=== PATIENT | female | born 1985 | race Caucasian/White ===

== ENCOUNTER 2016-02-21 19:52 | Inpatient (IN) | payer BC ==
[2016-02-21] MEDS ORDERED: ACETAMINOPHEN 325 MG TABLET PO ONE (20:50)
--- NOTE | 2016-02-21 20:54 | ER Document Report ---
ED Medical Screen (RME) - General Chief Complaint: Headache Stated Complaint: HEADACHE,BLURRED VISION,FEVER,COUGH Time seen by provider: 20:51 Mode of Arrival: Ambulatory Information source: Patient Notes: 30 yo female presents to ed for fever cough headache blurred vision left flank pain for 3 days.. Patient states she saw Dr Clark today and he started her on azithromycin today. TRAVEL OUTSIDE OF THE [place] IN LAST 30 DAYS: No - HPI Onset: Other - 3 days Onset/Duration: Gradual, Worse Quality of pain: Sharp Severity: Moderate Pain Level: 4 Associated Symptoms: Abdominal pain, Body/muscle aches, Cough (nonproductive), Dizzy/lightheaded, Fever, Headache, Other - left flank pian Exacerbated by: Denies Relieved by: Denies Similar symptoms previously: Yes Recently seen / treated by doctor: Yes - Related Data Smoking: Cigarettes, Less than 1 pack/day Frequency of alcohol use: None Drug Abuse: None Allergies/Adverse Reactions: No Known Allergies Allergy (Verified 03/30/15 13:15) Past Medical History - Social History Frequency of alcohol use: None Drug Abuse: None - Past Medical History Cardiac Medical History: Denies: Hx Coronary Artery Disease, Hx Heart Attack, Hx Hypertension Pulmonary Medical History: Denies: Hx Asthma, Hx Bronchitis, Hx COPD, Hx Pneumonia Neurological Medical History: Denies: Hx Cerebrovascular Accident, Hx Seizures Musculoskeltal Medical History: Denies Hx Arthritis Psychiatric Medical History: Reports: Hx Anxiety, Hx Depression - Immunizations Hx Diphtheria, Pertussis, Tetanus Vaccination: Yes Physical Exam - Vital signs Vitals: Temp Pulse Resp BP Pulse Ox 102.1 F H 89 20 105/61 96 02/21/16 20:02 02/21/16 20:02 02/21/16 20:02 02/21/16 20:02 02/21/16 20:02 Course - Vital Signs Vital signs: Temp Pulse Resp BP Pulse Ox 102.1 F H 89 20 105/61 96 02/21/16 20:02 02/21/16 20:02 02/21/16 20:02 02/21/16 20:02 02/21/16 20:02
[2016-02-21 21:23] LABS: APPEARANCE,URINE CLEAR; BILIRUBIN,URINE NEGATIVE (NEGATIVE); GLUCOSE, URINE NEGATIVE (NEGATIVE); KETONES,URINE NEGATIVE (NEGATIVE); LEUKOCYTE ESTERASE,URINE NEGATIVE (NEGATIVE); NITRITE,URINE NEGATIVE (NEGATIVE); PROTEIN,URINE NEGATIVE (NEGATIVE); URINE SPECIFIC GRAVITY 1.004; UROBILINOGEN,URINE NEGATIVE mg/dL (<2.0)
[2016-02-21 21:24] LABS: ABSOLUTE MONOCYTES (AUTO) 1.5 10^3/uL (0.1-1.4); ABSOLUTE NEUT (AUTO) 10.5 10^3/uL (1.7-8.2); BASOPHILS % (AUTO) 0.2 % (0-2); EOSINOPHILS % (AUTO) 0.1 % (0-6); HEMATOCRIT 40.7 % (36.0-47.0); HEMOGLOBIN 13.5 g/dL (12.0-15.5); HGB HCT DIFFERENCE -0.2; LYMPHOCYTES % (AUTO) 7.7 % (13-45); MEAN CORPUSCULAR HEMOGLOBIN 30.1 pg (27.0-33.4); MEAN CORPUSCULAR VOLUME 91 fl (80-97); MONOCYTES % (AUTO) 11.4 % (3-13); RED BLOOD COUNT 4.47 10^6/uL (3.72-5.28); SEGMENTED NEUTROPHILS % (AUTO) 80.6 % (42-78)
[2016-02-21 21:36] LABS: ALANINE AMINOTRANSFERASE 31 U/L (9-52); ALBUMIN 4.7 g/dL (3.5-5.0); ALKALINE PHOSPHATASE 60 U/L (38-126); ANION GAP 13 (5-19); ASPARTATE AMINO TRANSFERASE 22 U/L (14-36); BILIRUBIN,TOTAL 0.4 mg/dL (0.2-1.3); BLOOD UREA NITROGEN 4 mg/dL (7-20); CALCIUM 9.4 mg/dL (8.4-10.2); CARBON DIOXIDE 30 mmol/L (22-30); CHLORIDE 95 mmol/L (98-107); CREATININE RESULT 0.62 mg/dL (0.52-1.25); GLUCOSE 86 mg/dL (75-110); POTASSIUM 3.2 mmol/L (3.6-5.0); SODIUM 137.6 mmol/L (137-145); TOTAL PROTEIN 7.1 g/dL (6.3-8.2)
[2016-02-21] MEDS ORDERED: NORMAL SALINE 1000 ML 1,000 ML IV ONE (23:31)
[2016-02-21] MEDS ORDERED: ONDANSETRON HCL INJ/PF 4 MG/2 ML SDV IV ONE (23:31)
[2016-02-21] MEDS ORDERED: KETOROLAC TROMETHAMINE INJ/PF 30 MG/1 ML SDV IV ONE (23:31)
--- NOTE | 2016-02-21 23:32 | ER Document Report ---
ED Flu Like - General Mode of Arrival: Ambulatory Information source: Patient TRAVEL OUTSIDE OF THE [place] IN LAST 30 DAYS: No - HPI Onset: Other - x3 days Timing/Duration: Persistent Quality of pain: Achy Severity: None Associated symptoms: Other - see narrative <LORI GÓMEZ - Last Filed: 02/22/16 04:05> <KOURTNEYBERTO ANN - Last Filed: 02/22/16 05:39> - General Chief Complaint: Headache Stated Complaint: HEADACHE,BLURRED VISION,FEVER,COUGH Notes: Patient is a 30 year old female that presents to the emergency department today with complaints of fevers, cough, congestion, a headache, and generalized body aches for three days. Patient states that she was given azithromycin for a "bacterial infection" but she is not sure where the infection is located. Patient states that most of her family has been sick and she was the "last one to get it". Patient states that her children all have ear infections. Patient dates she has been having the above mentioned symptoms for three days. (LORI GÓMEZ) - Related Data Allergies/Adverse Reactions: No Known Allergies Allergy (Verified 02/22/16 05:04) Home Medications: Current Home Medications Fluoxetine HCl [Prozac 20 mg Capsule] 20 mg PO DAILY 02/22/16 [History] Oxycodone HCl/Acetaminophen [Percocet 5-325 mg Tablet] 1 - 2 tab PO ASDIR PRN [History] Past Medical History - General Information source: Patient - Social History Smoking Status: Current Every Day Smoker Cigarette use (# per day): Yes Frequency of alcohol use: None Drug Abuse: None Lives with: Family Family History: Reviewed & Not Pertinent Patient has suicidal ideation: No Patient has homicidal ideation: No Psychiatric Medical History: Reports: Hx Anxiety, Hx Depression Surgical Hx: Negative - Immunizations Hx Diphtheria, Pertussis, Tetanus Vaccination: Yes <LORI GÓMEZ - Last Filed: 02/22/16 04:05> Review of Systems - Review of Systems Constitutional: See HPI, Fever EENT: See HPI, Nose congestion Cardiovascular: No symptoms reported Respiratory: See HPI, Cough Gastrointestinal: No symptoms reported Genitourinary: No symptoms reported Female Genitourinary: No symptoms reported Musculoskeletal: No symptoms reported Skin: No symptoms reported Hematologic/Lymphatic: No symptoms reported Neurological/Psychological: See HPI, Headaches -: Yes All other systems reviewed and negative <LORI GÓMEZ - Last Filed: 02/22/16 04:05> Physical Exam - Vital signs Interpretation: Hypotensive, Febrile <LORI GÓMEZ - Last Filed: 02/22/16 04:05> <BERTO OCONNELL - Last Filed: 02/22/16 05:39> - Vital signs Vitals: Temp Pulse Resp BP Pulse Ox 102.1 F H 89 20 105/61 96 02/21/16 20:02 02/21/16 20:02 02/21/16 20:02 02/21/16 20:02 02/21/16 20:02 (LORI GÓMEZ) (BERTO OCONNELL) - Notes Notes: Physical Exam: General: Alert, ill-appearing, appears uncomfortable. Febrile. HEENT: Normocephalic. Atraumatic. PERRL. Extraocular movements intact. Oropharynx clear. Neck: No nuchal rigidity. Complains of neck pain with head movement. Respiratory: No respiratory distress. Clear and equal breath sounds bilaterally. Cardiovascular: Regular rate and rhythm. Abdominal: Normal Inspection. Non-tender. No distension. Normal Bowel Sounds. Back: Non-tender. No deformity or step off. Extremities: Moves all four extremities. Upper extremities: Normal inspection. Non-tender. Normal color. Normal ROM. Normal temperature. Lower extremities: Normal inspection. Non-tender. No edema. Normal color. Normal ROM. Normal temperature. Neurological: Normal cognition. AAOx4. Normal speech. Psychological: Normal affect. Normal Mood. Skin: Warm. Dry. Normal color. (LORI GÓMEZ) Course - Laboratory Result Diagrams: 02/21/16 21:00 02/21/16 21:00 <LORI GÓMEZ - Last Filed: 02/22/16 04:05> - Laboratory Result Diagrams: 02/21/16 21:00 02/21/16 21:00 - Diagnostic Test Radiology reviewed: Reports reviewed <BERTO OCONNELL - Last Filed: 02/22/16 05:39> - Re-evaluation Re-evalutation: 02/22/16 Patient is a 30-year-old female who comes in with fever, headache, neck pain, body wide pain. Labs with no acute findings. No flu. No strep. No UTI. Chest x-ray and CT negative. Attempted to perform lumbar puncture and got up to the point of anesthetizing the patient but she said that she was nauseated and could not tolerate the procedure. Patient did not want to proceed. Patient 's symptoms are very concerning for meningitis. Dexamethasone, cefepime and vancomycin have been started. Patient will be admitted to the hospital. Understands and agrees with this plan. Blood cultures have been sent. (BERTO OCONNELL) - Vital Signs Vital signs: Temp Pulse Resp BP Pulse Ox 98.6 F 89 14 90/60 L 95 02/22/16 05:32 02/21/16 20:02 02/22/16 05:31 02/22/16 05:31 02/22/16 05:31 (LORI GÓMEZ) (BERTO OCONNELL) - Laboratory Laboratory results interpreted by me: 02/21/16 02/21/16 02/21/16 21:00 21:00 21:00 WBC 13.0 H Seg Neutrophils % 80.6 H Lymphocytes % 7.7 L Absolute Neutrophils 10.5 H Absolute Monocytes 1.5 H Potassium 3.2 L Chloride 95 L BUN 4 L Lactic Acid 0.6 L Urine Blood 02/21/16 21:00 WBC Seg Neutrophils % Lymphocytes % Absolute Neutrophils Absolute Monocytes Potassium Chloride BUN Lactic Acid Urine Blood SMALL H (LORI GÓMEZ) (BERTO OCONNELL) Procedures - Lumbar Puncture Lumbar puncture Consent obtained: Yes Lumbar puncture pre-procedure: Sterile PPE donned, Betadine prep applied, Chloraprep applied, Sterile drapes applied Patient position: Sitting Anesthetic type: 1% Lidocaine Complications: Yes - patient did not tolerate, wanted to stop before spinal needle <BERTO OCONNELL - Last Filed: 02/22/16 05:39> Critical Care Note - Critical Care Note Total time excluding time spent on procedures (mins): 35 - evaluation and management of patient with fever and headache, multiple re-evaluations, coordination of admission, counseling of patient <BERTO OCONNELL - Last Filed: 02/22/16 05:39> Discharge <LORI GÓMEZ - Last Filed: 02/22/16 04:05> - Discharge Admitting Provider: Hospitalist - [facility] Admitted: Telemetry <BEROT OCONNELL - Last Filed: 02/22/16 05:39> - Discharge Clinical Impression: Meningitis Headache Qualifiers: Headache type: unspecified Headache chronicity pattern: acute headache Intractability: intractable Qualified Code(s): R51 - Headache Fever Qualifiers: Fever type: unspecified Qualified Code(s): R50.9 - Fever, unspecified Condition: Stable Disposition: ADMITTED INPATIENT Scribe Attestation: 02/22/16 05:39 I personally performed the services described in the documentation, reviewed and edited the documentation which was dictated to the scribe in my presence, and it accurately records my words and actions. (BERTO OCONNELL) Scribe Documentation - Scribe Written by Scribe:: Aleks Ibrahim, [id number] 02/22/2016 acting as scribe for :: Kourtney <LORI GÓMEZ - Last Filed: 02/22/16 04:05>
[2016-02-22] MEDS ORDERED: LIDOCAINE 1% INJ-PF (10 MG/ML) 30 ML SDV INJ ONE (01:05)
[2016-02-22] MEDS ORDERED: DIPHENHYDRAMINE HCL 50 MG/ML VIAL IV ONE (01:06)
[2016-02-22] MEDS ORDERED: PROCHLORPERAZINE EDISYLATE INJ 10 MG/2 ML VIAL IV ONE (01:06)
[2016-02-22] MEDS ORDERED: ONDANSETRON HCL INJ/PF 4 MG/2 ML SDV IV ONE (03:06)
[2016-02-22] MEDS ORDERED: DEXAMETHASONE SOD PHOS INJ 10 MG/1 ML VIAL IV ONE (03:07)
[2016-02-22] MEDS ORDERED: CEFTRIAXONE 2 GM/D5W RTU 50 ML IV ONE (03:11)
[2016-02-22] MEDS ORDERED: VANCOMYCIN HCL INJ 1000 MG VIAL IV ONE (03:11)
[2016-02-22] MEDS ORDERED: NORMAL SALINE 1000 ML 1,000 ML IV ONE (04:04)
[2016-02-22] MEDS ORDERED: ACETAMINOPHEN 325 MG TABLET PO PRN (04:20)
[2016-02-22] MEDS ORDERED: ONDANSETRON HCL INJ/PF 4 MG/2 ML SDV IV PRN (04:20)
[2016-02-22] MEDS ORDERED: KETOROLAC TROMETHAMINE INJ/PF 30 MG/1 ML SDV IV PRN (04:22)
[2016-02-22] MEDS ORDERED: VANCOMYCIN HCL 0 MG in DEXTROSE 5%-WATER 250 ML IV NR (04:30)
[2016-02-22] MEDS ORDERED: ACYCLOVIR SODIUM INJ/PF 500 MG/10 ML SDV IV PRN (05:12)
[2016-02-22] MEDS: POTASSI CL 20 MEQ/50 ML RIDER 50 ML IV SCH ×2 (05:21→07:58)
[2016-02-22] MEDS: NORMAL SALINE 1000 ML 1,000 ML IV SCH ×2 (05:21→07:58)
[2016-02-22] MEDS ORDERED: ACYCLOVIR SODIUM 750 MG in NORMAL SALINE 250 ML IV SCH (06:00)
--- NOTE | 2016-02-22 06:58 | PDOC H&P ---
History of Present Illness Admission Date/PCP: 02/22/16 04:20 KYUNG BETTENCOURT MD Patient complains of: Fever headache photophobia History of Present Illness: PADDY CONTEH is a 30 year old female with a past medical history ofDepression Patient denies homicidal or suicidal ideation. I Will evaluate education reconciliation, TSH and obtain urine drug screen, consider SSRI and or mental health consultation. 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 She denies sore throat, rhinorrhea, seizure or dizziness or ear pain. She admits exposure to daughter with viral syndrome. In the emergency room she's found to have a fever of 102 and leukocytosis but refuses LP. She started on empiric antibiotics and referred to the hospitalist for meningitis. Past Medical History Cardiac Medical History: Denies: Coronary Artery Disease, Myocardial Infarction, Hypertension Pulmonary Medical History: Denies: Asthma, Bronchitis, Chronic Obstructive Pulmonary Disease (COPD), Pneumonia Neurological Medical History: Denies: Seizures GI Medical History: Reports: Other - Irritable bowel syndrome diarrhea predominant Musculoskeltal Medical History: Denies: Arthritis Psychiatric Medical History: Reports: Depression, Tobacco Dependency, Other - Chronic pain of pelvic congestion syndrome Hematology: Denies: Anemia Social History Information Source: Patient Lives with: Family Smoking Status: Current Every Day Smoker Cigarettes Packs Per Day: 1 Number of Years Smokin Frequency of Alcohol Use: None Hx Recreational Drug Use: No Hx Prescription Drug Abuse: No - Advance Directive Resuscitation Status: Full Code Family History Family History: DM Parental Family History Reviewed: Yes Children Family History Reviewed: Yes Sibling(s) Family History Reviewed.: Yes Medication/Allergy Home Medications: Fluoxetine HCl [Prozac 20 mg Capsule] 20 mg PO DAILY 02/22/16 Oxycodone HCl/Acetaminophen [Percocet 5-325 mg Tablet] 1 - 2 tab PO ASDIR PRN Allergies/Adverse Reactions: No Known Allergies Allergy (Verified 02/22/16 05:04) Review of Systems Constitutional: ABSENT: chills, fever(s), headache(s), weight gain, weight loss Eyes: ABSENT: visual disturbances Ears: ABSENT: hearing changes Cardiovascular: ABSENT: chest pain, dyspnea on exertion, edema, orthropnea, palpitations Respiratory: ABSENT: cough, hemoptysis Gastrointestinal: ABSENT: abdominal pain, constipation, diarrhea, hematemesis, hematochezia, nausea, vomiting Genitourinary: ABSENT: dysuria, hematuria Musculoskeletal: ABSENT: joint swelling Integumentary: ABSENT: rash, wounds Neurological: ABSENT: abnormal gait, abnormal speech, confusion, dizziness, focal weakness, syncope Psychiatric: ABSENT: anxiety, depression, homidical ideation, suicidal ideation Endocrine: ABSENT: cold intolerance, heat intolerance, polydipsia, polyuria Hematologic/Lymphatic: ABSENT: easy bleeding, easy bruising Physical Exam Vital Signs: Temp Pulse Resp BP Pulse Ox 98.9 F 55 L 16 90/46 L 97 02/22/16 06:06 02/22/16 06:06 02/22/16 06:06 02/22/16 06:06 02/22/16 06:06 Intake & Output 02/20/16 02/21/16 02/22/16 11:59 11:59 11:59 Weight 48.9 kg General appearance: PRESENT: no acute distress, well-developed, well-nourished Head exam: PRESENT: atraumatic, normocephalic Eye exam: PRESENT: conjunctiva pink, EOMI, PERRLA. ABSENT: scleral icterus Ear exam: PRESENT: normal external ear exam Mouth exam: PRESENT: moist, tongue midline Throat exam: ABSENT: post pharyngeal erythema, tonsillar erythema, tonsillar exudate, tonsillogmegaly Neck exam: PRESENT: full ROM, meningismus. ABSENT: carotid bruit, JVD, lymphadenopathy, thyromegaly Respiratory exam: PRESENT: clear to auscultation ihsan. ABSENT: rales, rhonchi, wheezes Cardiovascular exam: PRESENT: RRR. ABSENT: diastolic murmur, rubs, systolic murmur Pulses: PRESENT: normal dorsalis pedis pul Vascular exam: PRESENT: normal capillary refill GI/Abdominal exam: PRESENT: normal bowel sounds, soft. ABSENT: distended, guarding, mass, organolmegaly, rebound, tenderness Rectal exam: PRESENT: deferred Extremities exam: PRESENT: full ROM. ABSENT: calf tenderness, clubbing, pedal edema Neurological exam: PRESENT: alert, awake, oriented to person, oriented to place , oriented to time, oriented to situation, CN II-XII grossly intact. ABSENT: motor sensory deficit Psychiatric exam: PRESENT: appropriate affect, normal mood. ABSENT: homicidal ideation, suicidal ideation Skin exam: PRESENT: dry, intact, warm. ABSENT: cyanosis, rash Results Impressions: Chest X-Ray 02/21/16 20:50 IMPRESSION: REACTIVE AIRWAY DISEASE VERSUS VIRAL SYNDROME. NO CONSOLIDATION. Head CT 02/22/16 01:32 IMPRESSION: NORMAL BRAIN CT WITHOUT CONTRAST. Assessment & Plan - Diagnosis (1) Meningitis Is this a current diagnosis for this admission?: YesPlan: Symptoms suggestive of aseptic meningitis she started on Rocephin vancomycin and acyclovir continue symptomatic management. Patient refusing LP continue to monitor biophysical and biochemical response (2) Depression Is this a current diagnosis for this admission?: YesPlan: Patient has flat affect unclear if underlying depression versus acute illness continue outpatient SSRI (3) Chronic pain Is this a current diagnosis for this admission?: YesPlan: Unclear indication for narcotics given history of pelvic congestion syndrome will hold narcotics (4) Tobacco dependence Is this a current diagnosis for this admission?: YesPlan: Tobacco Dependence patient received tobacco cessation counseling and offered nicotine replacement options (5) Fever Qualifiers: Fever type: unspecified Qualified Code(s): R50.9 - Fever, unspecified Is this a current diagnosis for this admission?: YesPlan: Please see #1 (6) Headache Qualifiers: Headache type: unspecified Headache chronicity pattern: acute headache Intractability: intractable Qualified Code(s): R51 - Headache Is this a current diagnosis for this admission?: YesPlan: Please see #1 - Time Time Spent: 30 to 50 Minutes
[2016-02-22] MEDS: DEXAMETHASONE 4 MG TABLET PO SCH ×3 (07:15→21:52)
[2016-02-22] MEDS: HEPARIN SOD (PORCINE) 5,000 UNIT/ML 1 ML SYRINGE SUBCUT SCH ×3 (07:15→21:52)
[2016-02-22 08:11] LABS: URINE BARBITURATES SCREEN NEGATIVE; URINE METHADONE SCREEN NEGATIVE; URINE PHENCYCLIDINE SCREEN NEGATIVE
[2016-02-22] MEDS ORDERED: CEFTRIAXONE 1 GM/D5W RTU 50 ML IV SCH (10:00)
[2016-02-22] MEDS ORDERED: FLUOXETINE HCL 20 MG CAPSULE PO SCH (10:00)
[2016-02-22] MEDS: DOCUSATE SODIUM 100 MG CAPSULE PO SCH ×2 (10:13→17:50)
[2016-02-22] MEDS ORDERED: POTASSIUM CHLORIDE 10 MEQ TABLET.SA PO ONE (10:45)
[2016-02-22] MEDS ORDERED: FLUOXETINE HCL 20 MG CAPSULE PO ONE ×2 (11:00)
[2016-02-22] MEDS: OXYCODONE-ACETAMINOPHEN 5-325 MG TABLET PO PRN (12:10)
[2016-02-22] MEDS: ACYCLOVIR SODIUM 750 MG in NORMAL SALINE 250 ML IV SCH ×2 (12:10→17:51)
[2016-02-22] MEDS: VANCOMYCIN HCL 500 MG in DEXTROSE 5%-WATER 100 ML IV SCH ×2 (15:08→22:05)
[2016-02-23] MEDS: ACYCLOVIR SODIUM 750 MG in NORMAL SALINE 250 ML IV SCH (03:22)
[2016-02-23] MEDS: OXYCODONE-ACETAMINOPHEN 5-325 MG TABLET PO PRN (05:09)
[2016-02-23] MEDS: HEPARIN SOD (PORCINE) 5,000 UNIT/ML 1 ML SYRINGE SUBCUT SCH (06:08)
[2016-02-23] MEDS: DEXAMETHASONE 4 MG TABLET PO SCH (06:08)
[2016-02-23 06:39] LABS: ABSOLUTE LYMPHOCYTES (AUTO) 0.9 10^3/uL (0.5-4.7); ABSOLUTE NEUT (AUTO) 12.4 10^3/uL (1.7-8.2); BASOPHILS % (AUTO) 0.1 % (0-2); HEMATOCRIT 36.3 % (36.0-47.0); HEMOGLOBIN 11.9 g/dL (12.0-15.5); HGB HCT DIFFERENCE -0.6; LYMPHOCYTES % (AUTO) 6.2 % (13-45); MEAN CORPUSCULAR HGB CONC 32.8 g/dL (32.0-36.0); MEAN CORPUSCULAR VOLUME 92 fl (80-97); MONOCYTES % (AUTO) 6.9 % (3-13); RED BLOOD COUNT 3.97 10^6/uL (3.72-5.28); SEGMENTED NEUTROPHILS % (AUTO) 86.8 % (42-78); WHITE BLOOD COUNT 14.3 10^3/uL (4.0-10.5)
[2016-02-23] MEDS: VANCOMYCIN HCL 500 MG in DEXTROSE 5%-WATER 100 ML IV SCH (06:51)
[2016-02-23 06:56] LABS: ANION GAP 11 (5-19); BLOOD UREA NITROGEN 4 mg/dL (7-20); CALCIUM 8.4 mg/dL (8.4-10.2); CARBON DIOXIDE 22 mmol/L (22-30); CHLORIDE 110 mmol/L (98-107); CREATININE RESULT 0.45 mg/dL (0.52-1.25); GLUCOSE 100 mg/dL (75-110); POTASSIUM 3.7 mmol/L (3.6-5.0); SODIUM 143.4 mmol/L (137-145)
[2016-02-23 08:32] VITALS: BP 100/56
[2016-02-23] MEDS ORDERED: OSELTAMIVIR PHOSPHATE 75 MG CAPSULE PO SCH (10:00)
[2016-02-23] MEDS ORDERED: FLUOXETINE HCL 20 MG CAPSULE PO SCH ×2 (10:00)
--- NOTE | 2016-02-23 11:27 | PDOC DISCHARGE SUMMARY ---
General - Admit/Disc Date/PCP Admission Date/Primary Care Provider: 02/22/16 04:20 KYUNG BETTENCOURT MD Discharge Date: 02/23/16 - Discharge Diagnosis (1) Influenza B Is this a current diagnosis for this admission?: YesSummary: Started on Tamiflu, ibuprofen and prn zofran. She was instructed to use Mucinex or Robitussin for cough over the counter (2) Chronic pain Is this a current diagnosis for this admission?: YesSummary: Continue home pain medication (3) Depression Is this a current diagnosis for this admission?: YesSummary: continue SSRI (4) Tobacco dependence Is this a current diagnosis for this admission?: YesSummary: Counseled (5) Headache Is this a current diagnosis for this admission?: YesSummary: Ibuprofen prn - Additional Information Resuscitation Status: Full Code Discharge Activity: Activity As Tolerated, Balance Activity w/Rest Home Medications: Fluoxetine HCl [Prozac 20 mg Capsule] 20 mg PO DAILY 02/22/16 Oxycodone HCl/Acetaminophen [Percocet 5-325 mg Tablet] 1 tab PO Q8 02/22/16 Acetaminophen [Tylenol 325 mg Tablet] 650 mg PO Q4HP PRN tablet 02/23/16 Ibuprofen 800 mg PO Q8HP PRN #30 tablet 02/23/16 Ondansetron HCl [Zofran 4 mg Tablet] 1 - 2 tab PO Q4H PRN #10 tablet 02/23/16 Oseltamivir Phosphate [Tamiflu 75 mg Capsule] 75 mg PO BID #9 capsule 02/23/16 History of Present Illness Patient complains of: Headache, body aches, fever and cough History of Present Illness: PADDY CONTEH is a 30 year old female who presented to [facility] ED's on 02/20/2015 with fever, cough and headache. She had a rapid flu in the ED that was read as negative. She has mild leucocytosis. She refused lumbar puncture by ED MD. She was empirically started on IV Ceftriazone, Vancomycin and Acyclovir for possible meningitis and referred to the hospitalist for admission. Hospital Course Hospital Course: Patient was admitted to the telemetry unit. Fever improved, she continued to complain about headache, body ache and cough. We repeated her influenza test using a nasal swab and found the patient to be positive for influenza B. Antibiotics were stopped. The patient was given one dose of tamiflu and discharged home. Physical Exam Vital Signs: Temp Pulse Resp BP Pulse Ox 98.0 F 49 L 16 95/51 L 100 02/23/16 08:29 02/23/16 08:29 02/23/16 08:29 02/23/16 08:29 02/23/16 08:29 Intake & Output 02/22/16 02/23/16 02/24/16 06:59 06:59 06:59 Intake Total 780 Balance 780 Weight 48.9 kg 48.9 kg General appearance: PRESENT: no acute distress, thin, well-developed Head exam: PRESENT: atraumatic, normocephalic Eye exam: PRESENT: conjunctiva pink, EOMI, PERRLA. ABSENT: scleral icterus Ear exam: PRESENT: normal external ear exam Mouth exam: PRESENT: moist, tongue midline Neck exam: ABSENT: carotid bruit, JVD, lymphadenopathy, thyromegaly Respiratory exam: PRESENT: clear to auscultation ihsan. ABSENT: rales, rhonchi, wheezes Cardiovascular exam: PRESENT: RRR. ABSENT: diastolic murmur, rubs, systolic murmur Pulses: ABSENT: normal carotid pulses, normal radial pulses, normal femoral pulses, normal dorsalis pedis pul, +1 pedal pulses bilateral, +2 pedal pulses bilateral, other Vascular exam: PRESENT: normal capillary refill GI/Abdominal exam: PRESENT: normal bowel sounds, soft. ABSENT: distended, guarding, mass, organolmegaly, rebound, tenderness Rectal exam: PRESENT: deferred Extremities exam: PRESENT: full ROM. ABSENT: calf tenderness, clubbing, pedal edema Neurological exam: PRESENT: alert, awake, oriented to person, oriented to place , oriented to time, oriented to situation, CN II-XII grossly intact. ABSENT: motor sensory deficit Psychiatric exam: PRESENT: appropriate affect, normal mood. ABSENT: homicidal ideation, suicidal ideation Skin exam: PRESENT: dry, intact, warm. ABSENT: cyanosis, rash Results Laboratory Results: 02/23/16 05:38 02/23/16 05:38 02/23/16 02/23/16 05:38 05:38 WBC 14.3 H RBC 3.97 Hgb 11.9 L Hct 36.3 MCV 92 MCH 30.0 MCHC 32.8 RDW 14.0 Plt Count 181 Seg Neutrophils % 86.8 H Lymphocytes % 6.2 L Monocytes % 6.9 Eosinophils % 0.0 Basophils % 0.1 Absolute Neutrophils 12.4 H Absolute Lymphocytes 0.9 Absolute Monocytes 1.0 Absolute Eosinophils 0.0 Absolute Basophils 0.0 Sodium 143.4 Potassium 3.7 Chloride 110 H Carbon Dioxide 22 Anion Gap 11 BUN 4 L Creatinine 0.45 L Est GFR ( Amer) > 60 Est GFR (Non-Af Amer) > 60 Glucose 100 Calcium 8.4 Impressions: Chest X-Ray 02/21/16 20:50 IMPRESSION: REACTIVE AIRWAY DISEASE VERSUS VIRAL SYNDROME. NO CONSOLIDATION. Head CT 02/22/16 01:32 IMPRESSION: NORMAL BRAIN CT WITHOUT CONTRAST. Qualifiers PATEINT BEING DISCHARGED WITH ANY OF THE FOLLOWING DIAGNOSIS?: No Plan Discharge Plan: Home with family. Prescriptions for Tamiflu. Zofran, and Zofran Time Spent: Less than 30 Minutes
== END 2016-02-23 09:33 | disposition home or self-care (01) | DRG 153 ==
LOC: ER 19:52 → EH 02-22 04:20 → UNDOADMIN 02-22 04:42 → EH 02-22 04:42 → 5 02-22 06:01
PROVIDERS: ADMIT Internal Medicine; ATTEND Internal Medicine
DX: J11.1 Influenza due to unidentified influenza virus with other respiratory manifestations (principal); G89.29 Other chronic pain; F17.210 Nicotine dependence, cigarettes, uncomplicated; F32.9 Major depressive disorder, single episode, unspecified; Z83.3 Family history of diabetes mellitus; R51 Headache; Z79.891 Long term (current) use of opiate analgesic
CPT/HCPCS: 36415; 70450; 71020; 80048; 80053; 80307; 81001; 83605; 83735; 84443; 84703; 85025; 87040; 87070; 87086; 87804; 87880; 96361; 96374; 96375; 96376; 99291; J0133; J0696; J0780; J1100; J1200; J1644; J1885; J2405; J3370; J3480; J3490; J7030; J7050

== ENCOUNTER → 2016-03-12 | Outpatient (CLI) | payer BC ==
[2016-03-12 14:10] LABS: HEMATOCRIT 42.3 % (36.0-47.0); HEMOGLOBIN 13.7 g/dL (12.0-15.5); HGB HCT DIFFERENCE -1.2; MEAN CORPUSCULAR HEMOGLOBIN 29.4 pg (27.0-33.4); MEAN CORPUSCULAR HGB CONC 32.3 g/dL (32.0-36.0); MEAN CORPUSCULAR VOLUME 91 fl (80-97); RED BLOOD COUNT 4.65 10^6/uL (3.72-5.28); RED CELL DISTRIBUTION WIDTH 13.6 % (11.5-14.0); WHITE BLOOD COUNT 9.1 10^3/uL (4.0-10.5)
[2016-03-12 14:23] LABS: ALANINE AMINOTRANSFERASE 29 U/L (9-52); ALKALINE PHOSPHATASE 79 U/L (38-126); ANION GAP 13 (5-19); ASPARTATE AMINO TRANSFERASE 16 U/L (14-36); BILIRUBIN,TOTAL 0.4 mg/dL (0.2-1.3); BLOOD UREA NITROGEN 2 mg/dL (7-20); CALCIUM 9.3 mg/dL (8.4-10.2); CARBON DIOXIDE 26 mmol/L (22-30); CHLORIDE 105 mmol/L (98-107); CREATININE RESULT 0.56 mg/dL (0.52-1.25); GLUCOSE 110 mg/dL (75-110); POTASSIUM 3.5 mmol/L (3.6-5.0); SODIUM 143.7 mmol/L (137-145); TOTAL PROTEIN 6.5 g/dL (6.3-8.2)
== END ==
LOC: OD 13:46
PROVIDERS: ATTEND Obstetrics & Gynecology
DX: R10.9 Unspecified abdominal pain (principal); R19.7 Diarrhea, unspecified
CPT/HCPCS: 36415; 80053; 85027

== ENCOUNTER 2016-03-14 07:26 | Emergency (ER) | payer BC ==
[2016-03-14] MEDS ORDERED: NORMAL SALINE 1000 ML 1,000 ML IV ONE (07:52)
[2016-03-14] MEDS ORDERED: ONDANSETRON HCL INJ/PF 4 MG/2 ML SDV IV ONE (07:52)
--- NOTE | 2016-03-14 07:55 | ER Document Report ---
ED GI/ - General Chief Complaint: Diarrhea Stated Complaint: POSSIBLE MEDICATION WITHDRAWL Mode of Arrival: Ambulatory Information source: Patient Notes: Patient presents reporting insomnia, nausea and diarrhea. Patient suspects that she is likely withdrawing from opioids. Patient states she has taken 10 mg of oxycodone every 6 hours for the past 2 years. Patient has not had any oxycodone since 5 PM yesterday. Patient states she does want to come off of her medications, but is not able to handle the side effects. Patient does complain of abdominal cramping. Patient denies any urinary symptoms or fever. TRAVEL OUTSIDE OF THE [place] IN LAST 30 DAYS: No - HPI Patient complains to provider of: Abdominal pain, Diarrhea. No: Vomiting Onset: Yesterday Timing/Duration: Waxing and waning Quality of pain: Cramping Severity at maximum: Severe Pain Level: 0 Vaginal bleeding (Compared to normal period): None Associated symptoms: Diarrhea, Nausea. denies: Blood in stool, Dysuria, Fever, Urinary hesitancy, Urinary frequency, Urinary retention, Urinary urgency, Vaginal discharge, Vomiting Exacerbated by: Denies Relieved by: Denies Similar symptoms previously: Yes Recently seen / treated by doctor: No - Related Data Allergies/Adverse Reactions: No Known Allergies Allergy (Verified 03/14/16 07:29) Past Medical History - General Information source: Patient Last Menstrual Period: 02/26/2016 - Social History Smoking Status: Current Every Day Smoker Chew tobacco use (# tins/day): No Frequency of alcohol use: None Drug Abuse: None Occupation: none Family History: DM Patient has suicidal ideation: No Patient has homicidal ideation: No - Past Medical History Cardiac Medical History: Denies: Hx Coronary Artery Disease, Hx Heart Attack, Hx Hypertension Pulmonary Medical History: Denies: Hx Asthma, Hx Bronchitis, Hx COPD, Hx Pneumonia Neurological Medical History: Denies: Hx Cerebrovascular Accident, Hx Seizures Renal/ Medical History: Denies: Hx Peritoneal Dialysis Musculoskeltal Medical History: Denies Hx Arthritis Psychiatric Medical History: Reports: Hx Anxiety, Hx Depression Past Surgical History: Reports: Hx Gynecologic Surgery - Immunizations Hx Diphtheria, Pertussis, Tetanus Vaccination: Yes Review of Systems - Review of Systems Constitutional: No symptoms reported. denies: Fever EENT: No symptoms reported Cardiovascular: No symptoms reported. denies: Chest pain Respiratory: No symptoms reported. denies: Cough, Short of breath Gastrointestinal: Abdominal pain, Diarrhea, Nausea, Poor fluid intake. denies: Vomiting Genitourinary: No symptoms reported. denies: Dysuria, Flank pain Female Genitourinary: No symptoms reported Musculoskeletal: No symptoms reported Skin: No symptoms reported Hematologic/Lymphatic: No symptoms reported Neurological/Psychological: No symptoms reported Physical Exam - Vital signs Vitals: Temp Pulse Resp BP Pulse Ox 97.3 F 86 16 126/88 H 100 03/14/16 07:30 03/14/16 07:30 03/14/16 07:30 03/14/16 07:30 03/14/16 07:30 - General General appearance: Appears well, Alert In distress: None - HEENT Head: Normocephalic, Atraumatic Eyes: Normal Nasal: Normal Mouth/Lips: Normal Mucous membranes: Normal Neck: Normal - Respiratory Respiratory status: No respiratory distress Chest status: Nontender Breath sounds: Normal. No: Rales, Rhonchi, Stridor, Wheezing Chest palpation: Normal - Cardiovascular Rhythm: Regular Heart sounds: S1 appreciated, S2 appreciated Murmur: No - Abdominal Inspection: Normal Distension: No distension Bowel sounds: Normal Tenderness: Nontender Organomegaly: No organomegaly - Back Back: Normal, Nontender. No: CVA tenderness - Extremities General upper extremity: Normal inspection, Normal strength General lower extremity: Normal inspection, Normal strength - Neurological Neuro grossly intact: Yes Cognition: Normal Neal Coma Scale Eye Opening: Spontaneous [place] Coma Scale Verbal: Oriented [place] Coma Scale Motor: Obeys Commands [place] Coma Scale Total: 15 - Psychological Associated symptoms: Tearful - Skin Skin Temperature: Warm Skin Moisture: Dry Skin Color: Normal Course - Re-evaluation Re-evalutation: 03/14/16 08:[address] Lynn regarding patient presentation and diagnostic evaluation. 03/14/16 Patient tolerating oral fluids without vomiting 03/14/16 Patient given outpatient referral information for detox. Patient states she plans to go [facility] [place] directly after discharge - Vital Signs Vital signs: Temp Pulse Resp BP Pulse Ox 97.3 F 84 16 124/76 99 03/14/16 07:30 03/14/16 10:34 03/14/16 10:34 03/14/16 10:34 03/14/16 10:34 - Laboratory Result Diagrams: 03/14/16 08:05 03/14/16 08:05 Laboratory results interpreted by me: 03/14/16 03/14/16 08:05 09:15 Potassium 3.4 L BUN 5 L Glucose 115 H Urine Protein 30 H Labs- Entire Visit 03/14/16 03/14/16 03/14/16 08:05 08:05 08:05 WBC 8.8 RBC 4.87 Hgb 14.4 Hct 44.7 MCV 92 MCH 29.6 MCHC 32.3 RDW 13.9 Plt Count 356 Seg Neutrophils % 76.1 Lymphocytes % 16.2 Monocytes % 6.3 Eosinophils % 0.9 Basophils % 0.5 Absolute Neutrophils 6.7 Absolute Lymphocytes 1.4 Absolute Monocytes 0.6 Absolute Eosinophils 0.1 Absolute Basophils 0.0 Sodium 143.8 Potassium 3.4 L Chloride 104 Carbon Dioxide 27 Anion Gap 13 BUN 5 L Creatinine 0.59 Est GFR ( Amer) > 60 Est GFR (Non-Af Amer) > 60 Glucose 115 H Calcium 9.4 Total Bilirubin 0.6 Direct Bilirubin 0.0 AST 19 ALT 27 Alkaline Phosphatase 77 Total Protein 6.8 Albumin 4.2 Lipase 159.8 Serum HCG, Qual NEGATIVE Urine Color Urine Appearance Urine pH Ur Specific [place] Urine Protein Urine Glucose (UA) Urine Ketones Urine Blood Urine Nitrite Urine Bilirubin Urine Urobilinogen Ur Leukocyte Esterase Urine WBC (Auto) Squamous Epi Cells Auto Urine Mucus (Auto) Urine Ascorbic Acid 03/14/16 09:15 WBC RBC Hgb Hct MCV MCH MCHC RDW Plt Count Seg Neutrophils % Lymphocytes % Monocytes % Eosinophils % Basophils % Absolute Neutrophils Absolute Lymphocytes Absolute Monocytes Absolute Eosinophils Absolute Basophils Sodium Potassium Chloride Carbon Dioxide Anion Gap BUN Creatinine Est GFR ( Amer) Est GFR (Non-Af Amer) Glucose Calcium Total Bilirubin Direct Bilirubin AST ALT Alkaline Phosphatase Total Protein Albumin Lipase Serum HCG, Qual Urine Color YELLOW Urine Appearance SLIGHTLY-CLOUDY Urine pH 5.0 Ur Specific [place] 1.028 Urine Protein 30 H Urine Glucose (UA) NEGATIVE Urine Ketones NEGATIVE Urine Blood NEGATIVE Urine Nitrite NEGATIVE Urine Bilirubin NEGATIVE Urine Urobilinogen NEGATIVE Ur Leukocyte Esterase NEGATIVE Urine WBC (Auto) 1 Squamous Epi Cells Auto 2 Urine Mucus (Auto) MOD Urine Ascorbic Acid NEGATIVE Discharge - Discharge Clinical Impression: Opiate withdrawal, Nausea, Hypokalemia Diarrhea Qualifiers: Diarrhea type: unspecified type Qualified Code(s): R19.7 - Diarrhea, unspecified Condition: Stable Disposition: HOME, SELF-CARE Instructions: Diarrhea, Nonspecific ([facility]), Nausea or Vomiting, Nonspecific ([facility] ), Antinausea Medication ([facility]), Hypokalemia ([facility]) Additional Instructions: Return immediately for any new or worsening symptoms Followup with your primary care provider, call tomorrow to make a followup appointment. Your primary doctor can recheck your potassium level as it was a little low today. Follow up with an outpatient detox facility, review list that you were given at discharge Prescriptions: Ondansetron HCl [Zofran 4 mg Tablet] 1 - 2 tab PO Q6 PRN #15 tablet PRN Reason: Referrals: KYUNG BETTENCOURT MD [Primary Care Provider] - Follow up as needed [facility] [Provider Group] - Follow up as needed [facility] [Provider Group] - Follow up as needed
[2016-03-14 08:25] LABS: ABSOLUTE EOSINOPHILS # (AUTO) 0.1 10^3/uL (0.0-0.6); ABSOLUTE LYMPHOCYTES (AUTO) 1.4 10^3/uL (0.5-4.7); ABSOLUTE MONOCYTES (AUTO) 0.6 10^3/uL (0.1-1.4); ABSOLUTE NEUT (AUTO) 6.7 10^3/uL (1.7-8.2); BASOPHILS % (AUTO) 0.5 % (0-2); EOSINOPHILS % (AUTO) 0.9 % (0-6); HEMATOCRIT 44.7 % (36.0-47.0); HEMOGLOBIN 14.4 g/dL (12.0-15.5); HGB HCT DIFFERENCE -1.5; LYMPHOCYTES % (AUTO) 16.2 % (13-45); MEAN CORPUSCULAR HEMOGLOBIN 29.6 pg (27.0-33.4); MEAN CORPUSCULAR HGB CONC 32.3 g/dL (32.0-36.0); MEAN CORPUSCULAR VOLUME 92 fl (80-97); MONOCYTES % (AUTO) 6.3 % (3-13); RED BLOOD COUNT 4.87 10^6/uL (3.72-5.28); RED CELL DISTRIBUTION WIDTH 13.9 % (11.5-14.0); SEGMENTED NEUTROPHILS % (AUTO) 76.1 % (42-78); WHITE BLOOD COUNT 8.8 10^3/uL (4.0-10.5)
[2016-03-14 08:46] LABS: ALANINE AMINOTRANSFERASE 27 U/L (9-52); ALBUMIN 4.2 g/dL (3.5-5.0); ALKALINE PHOSPHATASE 77 U/L (38-126); ANION GAP 13 (5-19); ASPARTATE AMINO TRANSFERASE 19 U/L (14-36); BILIRUBIN,TOTAL 0.6 mg/dL (0.2-1.3); BLOOD UREA NITROGEN 5 mg/dL (7-20); CALCIUM 9.4 mg/dL (8.4-10.2); CARBON DIOXIDE 27 mmol/L (22-30); CHLORIDE 104 mmol/L (98-107); CREATININE RESULT 0.59 mg/dL (0.52-1.25); GLUCOSE 115 mg/dL (75-110); LIPASE 159.8 U/L (23-300); POTASSIUM 3.4 mmol/L (3.6-5.0); SODIUM 143.8 mmol/L (137-145); TOTAL PROTEIN 6.8 g/dL (6.3-8.2)
[2016-03-14 09:33] LABS: APPEARANCE,URINE SLIGHTLY-CLOUDY; BILIRUBIN,URINE NEGATIVE (NEGATIVE); GLUCOSE, URINE NEGATIVE (NEGATIVE); KETONES,URINE NEGATIVE (NEGATIVE); LEUKOCYTE ESTERASE,URINE NEGATIVE (NEGATIVE); NITRITE,URINE NEGATIVE (NEGATIVE); PROTEIN,URINE 30 mg/dL (NEGATIVE); URINE SPECIFIC GRAVITY 1.028; UROBILINOGEN,URINE NEGATIVE mg/dL (<2.0)
[2016-03-14] MEDS ORDERED: POTASSIUM CHLORIDE 10 MEQ TABLET.SA PO ONE (09:57)
[2016-03-14 11:01] VITALS: BP 124/76
== END 2016-03-14 11:13 | disposition home or self-care (01) ==
LOC: ER 07:26
DX: F11.23 Opioid dependence with withdrawal (principal); T40.0X5A Adverse effect of opium, initial encounter; E87.6 Hypokalemia; R19.7 Diarrhea, unspecified; R10.9 Unspecified abdominal pain; F17.200 Nicotine dependence, unspecified, uncomplicated; R11.0 Nausea
CPT/HCPCS: 99284; 96361; 96374; 36415; 83690; 84703; 85025; 80053; 81001; J2405; J7030

== ENCOUNTER 2016-03-26 16:46 | Emergency (ER) | payer BC ==
--- NOTE | 2016-03-26 18:07 | ER Document Report ---
ED Medical Screen (RME) - General Stated Complaint: DIZZY/HEART RATE PROBLEM Notes: 30 yo female c/o head spinning, heart beating fast and hot flashes. pt feels these symptoms when she stands up. pt was released from detox program on Thursday , detoxed from oxycodone. . pt was taking gabapentin, zanaflex and vistaril QID x 10 days, elavil the last 3 days of treatment. hasnt had any meds since thursday no n/v/d, no fever, no recent illness TRAVEL OUTSIDE OF THE [place] IN LAST 30 DAYS: No - Related Data Allergies/Adverse Reactions: No Known Allergies Allergy (Verified 03/14/16 07:29) Past Medical History - Past Medical History Cardiac Medical History: Denies: Hx Coronary Artery Disease, Hx Heart Attack, Hx Hypertension Pulmonary Medical History: Denies: Hx Asthma, Hx Bronchitis, Hx COPD, Hx Pneumonia Neurological Medical History: Denies: Hx Cerebrovascular Accident, Hx Seizures Renal/ Medical History: Denies: Hx Peritoneal Dialysis Musculoskeltal Medical History: Denies Hx Arthritis Psychiatric Medical History: Reports: Hx Anxiety, Hx Depression Past Surgical History: Reports: Hx Gynecologic Surgery - Immunizations Hx Diphtheria, Pertussis, Tetanus Vaccination: Yes Physical Exam - Vital signs Vitals: Temp Pulse Resp BP Pulse Ox 97.9 F 79 16 109/69 100 03/26/16 17:44 03/26/16 17:44 03/26/16 17:44 03/26/16 17:44 03/26/16 17:44 Course - Vital Signs Vital signs: Temp Pulse Resp BP Pulse Ox 97.9 F 79 16 109/69 100 03/26/16 17:44 03/26/16 17:44 03/26/16 17:44 03/26/16 17:44 03/26/16 17:44
[2016-03-26 18:39] LABS: ABSOLUTE BASOPHILS # (AUTO) 0.1 10^3/uL (0.0-0.2); ABSOLUTE EOSINOPHILS # (AUTO) 0.3 10^3/uL (0.0-0.6); ABSOLUTE LYMPHOCYTES (AUTO) 2.5 10^3/uL (0.5-4.7); ABSOLUTE MONOCYTES (AUTO) 0.8 10^3/uL (0.1-1.4); ABSOLUTE NEUT (AUTO) 7.9 10^3/uL (1.7-8.2); BASOPHILS % (AUTO) 0.7 % (0-2); EOSINOPHILS % (AUTO) 2.3 % (0-6); HEMATOCRIT 43.5 % (36.0-47.0); HEMOGLOBIN 14.2 g/dL (12.0-15.5); HGB HCT DIFFERENCE -0.9; LYMPHOCYTES % (AUTO) 21.7 % (13-45); MEAN CORPUSCULAR HEMOGLOBIN 29.5 pg (27.0-33.4); MEAN CORPUSCULAR HGB CONC 32.7 g/dL (32.0-36.0); MEAN CORPUSCULAR VOLUME 90 fl (80-97); MONOCYTES % (AUTO) 7.2 % (3-13); RED BLOOD COUNT 4.82 10^6/uL (3.72-5.28); RED CELL DISTRIBUTION WIDTH 14.4 % (11.5-14.0); SEGMENTED NEUTROPHILS % (AUTO) 68.1 % (42-78); WHITE BLOOD COUNT 11.6 10^3/uL (4.0-10.5)
[2016-03-26 18:40] LABS: APPEARANCE,URINE CLEAR; BILIRUBIN,URINE NEGATIVE (NEGATIVE); GLUCOSE, URINE NEGATIVE (NEGATIVE); KETONES,URINE NEGATIVE (NEGATIVE); LEUKOCYTE ESTERASE,URINE NEGATIVE (NEGATIVE); NITRITE,URINE NEGATIVE (NEGATIVE); PROTEIN,URINE NEGATIVE (NEGATIVE); URINE SPECIFIC GRAVITY 1.011; UROBILINOGEN,URINE NEGATIVE mg/dL (<2.0)
[2016-03-26 18:57] LABS: ALANINE AMINOTRANSFERASE 61 U/L (9-52); ALBUMIN 4.6 g/dL (3.5-5.0); ALKALINE PHOSPHATASE 74 U/L (38-126); ANION GAP 11 (5-19); ASPARTATE AMINO TRANSFERASE 24 U/L (14-36); BILIRUBIN,TOTAL 0.3 mg/dL (0.2-1.3); BLOOD UREA NITROGEN 10 mg/dL (7-20); CALCIUM 9.8 mg/dL (8.4-10.2); CARBON DIOXIDE 32 mmol/L (22-30); CHLORIDE 99 mmol/L (98-107); CREATININE RESULT 0.53 mg/dL (0.52-1.25); GLUCOSE 102 mg/dL (75-110); POTASSIUM 4.1 mmol/L (3.6-5.0); SODIUM 141.5 mmol/L (137-145); TOTAL PROTEIN 7.1 g/dL (6.3-8.2)
[2016-03-26] MEDS ORDERED: MECLIZINE HCL 25 MG TABLET PO ONE (22:13)
--- NOTE | 2016-03-26 23:39 | ER Document Report ---
ED Dizziness/Weakness - General Mode of Arrival: Ambulatory Information source: Patient TRAVEL OUTSIDE OF THE [place] IN LAST 30 DAYS: No - HPI Patient complains to provider of: Dizziness Onset: This morning Onset/Duration: Gradual, Persistent Associated symptoms: Dizzy, Headache, Lightheaded Exacerbated by: Change in position - Standing Baseline gait: Walks w/o assistance <MARY BLACKWELL - Last Filed: 03/27/16 00:32> <ERON SOLIS - Last Filed: 04/07/16 13:06> - General Chief Complaint: Dizziness Stated Complaint: DIZZY/HEART RATE PROBLEM Notes: Patient is a 30-year-old female presenting to the emergency department accompanied by her concerned of lightheadedness upon standing onset today. Patient states that she has been very hot, diaphoretic, and shaky with head pounding. Patient states that she got out of a prescription drug detox program on 03/24/2016. Patient was there for 10 days. Patient denies ever buying drugs off the street, but instead admits that she was prescribed 60- 80 mg Oxycodone every day for the past year from Dr. Bettencourt. Patient states that she became aware that she was becoming addicted, but whenever she tried to quit she began having withdrawal symptoms. Patient was given the choice by her to either go to treatment or get , so she decided to save her family. Patient denies ever having any seizures related to withdrawal. (MARY BLACKWELL) - Related Data Allergies/Adverse Reactions: No Known Allergies Allergy (Verified 03/26/16 18:02) Past Medical History - General Information source: Patient - Social History Smoking Status: Current Every Day Smoker Chew tobacco use (# tins/day): No Frequency of alcohol use: None Drug Abuse: Prescription drugs Family History: Reviewed & Not Pertinent, DM Patient has suicidal ideation: No Patient has homicidal ideation: No - Past Medical History Cardiac Medical History: Denies: Hx Coronary Artery Disease, Hx Heart Attack, Hx Hypertension Pulmonary Medical History: Denies: Hx Asthma, Hx Bronchitis, Hx COPD, Hx Pneumonia Neurological Medical History: Denies: Hx Cerebrovascular Accident, Hx Seizures Renal/ Medical History: Reports: Hx Ectopic , Other - "Pelvic congestion syndrome". Denies: Hx Peritoneal Dialysis Musculoskeltal Medical History: Denies Hx Arthritis Psychiatric Medical History: Reports: Hx Anxiety, Hx Depression Past Surgical History: Reports: Hx Gynecologic Surgery - Immunizations Hx Diphtheria, Pertussis, Tetanus Vaccination: Yes <MARY BLACKWELL - Last Filed: 03/27/16 00:32> Review of Systems - Review of Systems Constitutional: See HPI, Diaphoresis, Other - Shaky EENT: No symptoms reported Cardiovascular: See HPI, Dizziness, Lightheaded Respiratory: No symptoms reported Gastrointestinal: No symptoms reported. denies: Nausea Genitourinary: No symptoms reported Female Genitourinary: No symptoms reported Musculoskeletal: No symptoms reported Skin: No symptoms reported Hematologic/Lymphatic: No symptoms reported Neurological/Psychological: No symptoms reported -: Yes All other systems reviewed and negative <MARY BLACKWELL - Last Filed: 03/27/16 00:32> Physical Exam - Vital signs Interpretation: Normal - General General appearance: Appears well, Alert - HEENT Head: Normocephalic, Atraumatic Eyes: Normal Pupils: PERRL - Respiratory Respiratory status: No respiratory distress Chest status: Nontender Breath sounds: Normal Chest palpation: Normal - Cardiovascular Rhythm: Regular Heart sounds: Normal auscultation Murmur: No - Abdominal Inspection: Normal Distension: No distension Bowel sounds: Normal Tenderness: Nontender Organomegaly: No organomegaly - Back Back: Normal, Nontender - Extremities General upper extremity: Normal inspection, Nontender, Normal color, Normal ROM , Normal temperature General lower extremity: Normal inspection, Nontender, Normal color, Normal ROM , Normal temperature - Neurological Neuro grossly intact: Yes Cognition: Normal [place] Coma Scale Eye Opening: Spontaneous [place] Coma Scale Verbal: Oriented [place] Coma Scale Motor: Obeys Commands [place] Coma Scale Total: 15 Speech: Normal - Psychological Associated symptoms: Normal affect, Normal mood - Skin Skin Temperature: Warm Skin Moisture: Dry Skin Color: Normal <MARY BLACKWELL - Last Filed: 03/27/16 00:32> Course - Laboratory Result Diagrams: 03/26/16 18:10 03/26/16 18:10 <MARY BLACKWELL - Last Filed: 03/27/16 00:32> - Laboratory Result Diagrams: 03/26/16 18:10 03/26/16 18:10 <ERON SOLIS - Last Filed: 04/07/16 13:06> - Re-evaluation Re-evalutation: 02/08/17 23:55 I personally performed the services described in the documentation, reviewed and edited the documentation which was dictated to my scribe in my presence, and it accurately records my words and actions. Patient presents a chief plain dizziness room spinning sensation no headache blurred vision or double vision. 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 Says he doing pretty well with medications they gave her there is not currently on any medications. Is not altered mental status not tachycardic or hypertensive. Acute laboratory evaluation is negative vital signs are stable tried to give her a little Antivert with the dizziness she feels some improvement she is able to walk and he really without any difficulty clinical concerns for central cause of dizziness. Patient stable wants to go home follow primary care physician one to 2 days and discussed reasons for ED return sooner (ERON SOLIS) - Vital Signs Vital signs: Temp Pulse Resp BP Pulse Ox 98.1 F 66 18 111/78 99 03/27/16 00:27 03/27/16 00:27 03/27/16 00:27 03/27/16 00:27 03/27/16 00:27 (MARY BLACKWELL) (ERON SOLIS) - Laboratory Laboratory results interpreted by me: 03/26/16 03/26/16 18:10 18:10 WBC 11.6 H RDW 14.4 H Carbon Dioxide 32 H ALT 61 H (MARY BLACKWELL) (ERON SOLIS) Discharge <MARY BLACKWELL - Last Filed: 03/27/16 00:32> <ERON SOLIS - Last Filed: 04/07/16 13:06> - Discharge Clinical Impression: Dizziness Condition: Stable Disposition: HOME, SELF-CARE Instructions: Dizziness ([facility]) Additional Instructions: Dizziness Under normal circumstances, your sense of balance is controlled by a number of signals that your brain receives from several locations: Eyes. No matter what your position, visual signals help you determine where your body is in space and how it's moving. Sensory nerves. These are in your skin, muscles and joints. Sensory nerves send messages to your brain about body movements and positions. Inner ear. The organ of balance in your inner ear is the vestibular labyrinth. It includes loop-shaped structures (semicircular canals) that contain fluid and fine, hair-like sensors that monitor the rotation of your head. Near the semicircular canals are the utricle and saccule, which contain tiny particles called otoconia ([id number]). These particles are attached to sensors that help detect gravity and [id number] motion. Good balance depends on at least two of these three sensory systems working well. For instance, closing your eyes while washing your hair in the shower doesn't mean you'll lose your balance. Signals from your inner ear and sensory nerves help keep you upright. However, if your central nervous system can't process signals from all of these locations, if the messages are contradictory, or if the sensory systems aren't functioning properly, you may experience loss of balance. Dizziness may have a number of potential causes. These may include: Vertigo Vertigo - the false sense of motion or spinning - is the most common symptom of dizziness. Sitting up or moving around may make it worse. Sometimes vertigo is severe enough to cause nausea and vomiting. Vertigo usually results from a problem with the nerves and the structures of the balance mechanism in your inner ear (vestibular system), which sense movement and changes in your head position. Abnormal rhythmic eye movements ( nystagmus) almost always accompany vertigo. Causes of vertigo may include: Benign paroxysmal positional vertigo (BPPV). BPPV involves intense, brief episodes of vertigo associated with a change in the position of your head, often when you turn over in bed or sit up in the morning. It occurs when normal calcium carbonate crystals (otoconia) break loose and fall into the wrong part of the canals in your inner ear. When these particles shift, they stimulate sensors in your ear, producing an episode of vertigo. Doctors don't know what causes BPPV, but it may be a natural result of aging. Trauma to your head also may lead to BPPV. Inflammation in the inner ear. Signs and symptoms of inflammation of the inner ear (acute vestibular neuronitis or labyrinthitis) include sudden, intense vertigo that may persist for several days, with nausea and vomiting. It can be incapacitating, requiring bed rest to minimize the signs and symptoms. Fortunately, vestibular neuronitis generally subsides and clears up on its own. Recovery time may be shorter with vestibular rehabilitation exercises. Although the cause of this condition is unknown, it may be a viral infection. Meniere's disease. This disease involves the excessive buildup of fluid in your inner ear. It may affect adults at any age and is characterized by sudden episodes of vertigo lasting 30 minutes to an hour or longer. Other signs and symptoms include the feeling of fullness in your ear, buzzing or ringing in your ear (tinnitus), and fluctuating hearing loss. The cause of Meniere's disease is unknown. Vestibular migraine. People who experience a vestibular migraine are very sensitive to motion. Dizziness and vertigo caused by a vestibular migraine may be triggered by turning your head quickly, being in a crowded or confusing place , driving or riding in a vehicle, or even watching movement on TV. A vestibular migraine may cause feelings of imbalance or unsteadiness, hearing loss, "muffled " hearing, or ringing in your ears (tinnitus). For most people with a vestibular migraine, vertigo doesn't necessarily happen at the same time as the headache. Instead, typical migraine triggers may lead to vertigo without an actual migraine. Attacks of migrainous vertigo can last from a few minutes to several days. Acoustic neuroma. An acoustic neuroma (schwannoma) is a noncancerous (benign ) growth on the acoustic nerve, which connects the inner ear to your brain. Signs and symptoms of an acoustic neuroma may include dizziness, loss of balance , hearing loss and tinnitus. Rapid changes in motion. Riding on roller coasters or in boats, cars or even airplanes may on occasion make you dizzy. Other causes. Rarely, vertigo can be a symptom of a more serious neurological problem such as a stroke, brain hemorrhage or multiple sclerosis. Feeling of faintness (presyncope) "Presyncope" is the medical term for feeling faint and lightheaded without losing consciousness. Sometimes nausea, pale skin and a sense of dizziness accompany a feeling of faintness. Causes of presyncope include: Drop in blood pressure (orthostatic hypotension). A dramatic drop in your systolic blood pressure - the higher number in your blood pressure reading - may result in lightheadedness or a feeling of faintness. It can occur after sitting up or standing too quickly. Inadequate output of blood from the heart. Conditions such as partially blocked arteries (atherosclerosis), disease of the heart muscle (cardiomyopathy) , abnormal heart rhythm (arrhythmia) or a decrease in blood volume may cause inadequate blood flow from your heart. Loss of balance (disequilibrium) Disequilibrium is the loss of balance or the feeling of unsteadiness when you walk. Causes may include: Inner ear (vestibular) problems. Abnormalities with your inner ear can cause you to feel like you are floating, have a heavy head or are unsteady in the dark. Sensory disorders. Failing vision and nerve damage in your legs (peripheral neuropathy) are common in older adultsand may result in difficulty maintaining your balance. Joint and muscle problems. Muscle weakness and osteoarthritis - the type of arthritis that involves wear and tear of your joints - can contribute to loss of balance when it involves your weight-bearing joints. Medications. Loss of balance can be a side effect of certain medications, such as anti-seizure drugs, sedatives and tranquilizers. Lightheadedness and other kinds of 'dizziness' Feeling lightheaded is the feeling of being "spaced out" or having the sensation of spinning inside your head. It can also give you the sensation that if your lightheadedness worsens, you might lose consciousness. Causes may include: Inner ear disorders. These abnormalities of your inner ear can lead to illusions of motion and make you feel like you're floating. Anxiety disorders. Certain anxiety disorders, such as panic attacks and a fear of leaving home or being in large, open spaces (agoraphobia), may cause lightheadedness. Hyperventilation. Abnormally rapid breathing that often accompanies anxiety disorders may make you feel lightheaded. Referrals: KYUNG BETTENCOURT MD [Primary Care Provider] - Follow up as needed [facility] [Provider Group] - Follow up in 3-5 days (Follow primary care physician one to 2 days return for increasing worsening or new symptoms) Scribe Documentation - Scribe Written by Aleks:: Mary Blackwell 03/26/2016 [id number] acting as scribe for :: Dinh <MARY BLACKWELL - Last Filed: 03/27/16 00:32>
[2016-03-27 00:28] VITALS: BP 111/78
== END 2016-03-27 00:24 | disposition home or self-care (01) ==
LOC: ER 16:46
DX: R42 Dizziness and giddiness (principal); R61 Generalized hyperhidrosis; F17.200 Nicotine dependence, unspecified, uncomplicated
CPT/HCPCS: 36415; 80053; 81001; 85025; 99284

== ENCOUNTER 2016-10-08 14:26 | Emergency (ER) | payer BC ==
[2016-10-08 14:52] VITALS: BP 113/58
[2016-10-08] MEDS ORDERED: DIPHENHYDRAMINE HCL 50 MG/ML VIAL IV ONE (14:56)
[2016-10-08] MEDS ORDERED: METOCLOPRAMIDE HCL INJ/PF 10 MG/2 ML SDV IV ONE (14:56)
[2016-10-08] MEDS ORDERED: DEXTROSE 5%-1/2 NORMAL SALINE 1,000 ML IV ONE (14:56)
--- NOTE | 2016-10-08 14:58 | ER Document Report ---
ED GI/ - General Chief Complaint: Flu Symptoms Stated Complaint: FLU LIKE SYMPTOMS Time Seen by Provider: 10/08/16 14:53 Notes: The patient is a 30-year-old female, , 5 weeks , presents with 2 weeks of nausea, vomiting and 2 days of left lower quadrant abdominal pain. She is also noticing some vaginal spotting. Denies diarrhea, constipation, dysuria, flank pain, hematuria, chest pain or shortness of breath. TRAVEL OUTSIDE OF THE [place] IN LAST 30 DAYS: No - Related Data Allergies/Adverse Reactions: No Known Allergies Allergy (Verified 10/08/16 14:49) Home Medications: Current Home Medications Pnv No.122/Iron/Folic Acid [ Multi Tablet] 1 each PO DAILY 10/08/16 [ History] Past Medical History - General Information source: Patient - Social History Smoking Status: Unknown if Ever Smoked Family History: Reviewed & Not Pertinent, DM - Past Medical History Cardiac Medical History: Denies: Hx Coronary Artery Disease, Hx Heart Attack, Hx Hypertension Pulmonary Medical History: Denies: Hx Asthma, Hx Bronchitis, Hx COPD, Hx Pneumonia Neurological Medical History: Denies: Hx Cerebrovascular Accident, Hx Seizures Renal/ Medical History: Reports: Hx Ectopic . Denies: Hx Peritoneal Dialysis Musculoskeltal Medical History: Denies Hx Arthritis Psychiatric Medical History: Reports: Hx Anxiety, Hx Depression Past Surgical History: Reports: Hx Gynecologic Surgery - Immunizations Hx Diphtheria, Pertussis, Tetanus Vaccination: Yes Review of Systems - Review of Systems Notes: REVIEW OF SYSTEMS: CONSTITUTIONAL: -fevers, -chills EENT: -eye pain, -difficulty swallowing, -nasal congestion CARDIOVASCULAR:-chest pain, -syncope. RESPIRATORY: -cough, -SOB GASTROINTESTINAL: +abdominal pain, +nausea, +vomiting, -diarrhea GENITOURINARY: -dysuria, -hematuria, +vaginal spotting MUSCULOSKELETAL: -back pain, -neck pain SKIN: -rash or skin lesions. HEMATOLOGIC: -easy bruising or bleeding. LYMPHATIC: -swollen, enlarged glands. NEUROLOGICAL: -altered mental status or loss of consciousness, -headache, - neurologic symptoms PSYCHIATRIC: -anxiety, -depression. ALL OTHER SYSTEMS REVIEWED AND NEGATIVE. Physical Exam - Vital signs Vitals: Temp Pulse Resp BP Pulse Ox 97.8 F 61 18 113/58 L 100 10/08/16 14:50 10/08/16 14:50 10/08/16 14:50 10/08/16 14:50 10/08/16 14:50 - Notes Notes: PHYSICAL EXAMINATION: GENERAL: Well-appearing, well-nourished and in no acute distress. HEAD: Atraumatic, normocephalic. EYES: Pupils equal round and reactive to light, extraocular movements intact, sclera anicteric, conjunctiva are normal. ENT: nares patent, oropharynx clear without exudates. Moist mucous membranes. NECK: Normal range of motion, supple without lymphadenopathy LUNGS: Breath sounds clear to auscultation bilaterally and equal. No wheezes rales or rhonchi. HEART: Regular rate and rhythm without murmurs ABDOMEN: Soft, mild LLQ tenderness, normoactive bowel sounds. No guarding, no rebound. No masses appreciated. EXTREMITIES: Normal range of motion, no pitting or edema. No cyanosis. NEUROLOGICAL: Cranial nerves grossly intact. Normal speech, normal gait. Normal sensory and motor exams. PSYCH: Normal mood, normal affect. SKIN: Warm, Dry, normal turgor, no rashes or lesions noted. Course - Re-evaluation Re-evalutation: Patient's beta hCG is 340 and her ultrasound does not show a intrauterine . Instructed her to return in 48 hours for repeat blood test and ultrasound or sooner if she has worsening abdominal pain. Patient's other labs are unremarkable. Will provide her with Diclegis for her nausea and vomiting. - Vital Signs Vital signs: Temp Pulse Resp BP Pulse Ox 97.8 F 61 18 113/58 L 100 10/08/16 14:50 10/08/16 14:50 10/08/16 14:50 10/08/16 14:50 10/08/16 14:50 - Laboratory Result Diagrams: 10/08/16 16:26 10/08/16 16:26 Laboratory results interpreted by me: 10/08/16 16:26 Potassium 3.4 L BUN 5 L Beta HCG, Quant 328.12 H Discharge - Discharge Clinical Impression: Abdominal pain during Qualifiers: Trimester: first trimester Qualified Code(s): O26.891 - Other specified related conditions, first trimester; R10.9 - Unspecified abdominal pain Nausea and vomiting Qualifiers: Vomiting type: unspecified Vomiting Intractability: non-intractable Qualified Code(s): R11.2 - Nausea with vomiting, unspecified Condition: Stable Disposition: HOME, SELF-CARE Additional Instructions: Your beta hCG today is 328 and your ultrasound was unable to visualize an intrauterine fetus. This may be due to the early gestational age or you may have a fetus outside of the uterus, which is dangerous. You must return in 48 hours for a repeat blood test and ultrasound in 48 hours. If you begin to have worsening abdominal pain or any other concerns, return immediately to the emergency room. : You are . care is best started as early in as possible. If you're unsure about continuing this , you should discuss this with your physician or with digital content marketing manager at [facility]. You should take only medications approved by your physician. Acetaminophen can safely be taken for minor pains. As a rule, medication for chronic conditions such as asthma or seizures can safely be continued. You should discuss with the physician every medicine you take. Any regular exercise program can be continued. Talk to your physician, however, before engaging in competitive or demanding sports. Alcohol, smoking, and "street drugs" are dangerous to your baby. Cocaine is especially dangerous. Don't use any illicit drugs! REPEAT BLOOD TEST: At this time, it is uncertain if you have a viable . During the first three months of , the hormone produced from the placenta will steadily rise, usually doubling in value every 2 - 3 days. In order to determine if your is viable and likely be succesful, a repeat of this blood test for the hormone is recommended in 2 - 3 days. An order for this test to be done as an outpatient is being provided. After you have this repeat test done, call your doctor or call us for the results. If the value of the test is increasing as would be expected in a normal , then your is likely to be ok. However, if the value of the test is declining, it will suggest something has happened with your and it will not likely be a successful . FOLLOW-UP CARE: If you have been referred to a physician for follow-up care, call the physician s office for an appointment as you were instructed or within the next two days. If you experience worsening or a significant change in your symptoms (very heavy bleeding with large clots of blood, passage of tissue, more severe abdominal / pelvic pain or cramping, feeling faint or severe weakness, fever, etc.), notify the physician immediately or return to the Emergency Department at any time for re-evaluation. OBSTETRIC-GYNECOLOGIC (OB-CUP MACHINE OPERATOR) PHYSICIANS IN [place]: [facility] [address] [place], [place] [phone] [facility] [address], [place] [phone] For active duty and dependents diagnosed with a threatened or miscarriage, you should follow up in the following manner: Standard patients who have a local civilian provider should follow up with that provider. Patients of the Family Practice Clinic should call your Team Nurse at 8: 00 am the following morning for further instructions. If you are neither a Standard patient nor a patient of the Family Practice Clinic, you should follow up at the [facility] ([facility]) . Patients already enrolled in the [facility] OB Clinic, Prime patients not assigned to the Family Practice Clinic, and Active Duty patients not assigned to Family Practice Clinic should report to the [facility] Lab at 8:00 am the next morning that the [facility] OB Clinic is open and then you will be seen in the OB Clinic at 11:00 am. Prescriptions: Doxylamine/Pyridoxine HCl [Iveth Treviño 10-10 mg Tablet] 1 each PO Q8H PRN #30 tablet. PRJuan Reason: Referrals: MARCK SOTO MD [ACTIVE STAFF] - Follow up as needed
[2016-10-08 16:09] LABS: APPEARANCE,URINE CLEAR; BILIRUBIN,URINE NEGATIVE (NEGATIVE); GLUCOSE, URINE NEGATIVE (NEGATIVE); KETONES,URINE NEGATIVE (NEGATIVE); LEUKOCYTE ESTERASE,URINE NEGATIVE (NEGATIVE); NITRITE,URINE NEGATIVE (NEGATIVE); PROTEIN,URINE NEGATIVE (NEGATIVE); URINE SPECIFIC GRAVITY 1.001; UROBILINOGEN,URINE NEGATIVE mg/dL (<2.0)
[2016-10-08 16:58] LABS: ABSOLUTE BASOPHILS # (AUTO) 0.1 10^3/uL (0.0-0.2); ABSOLUTE EOSINOPHILS # (AUTO) 0.2 10^3/uL (0.0-0.6); ABSOLUTE MONOCYTES (AUTO) 0.6 10^3/uL (0.1-1.4); ABSOLUTE NEUT (AUTO) 6.4 10^3/uL (1.7-8.2); BASOPHILS % (AUTO) 0.7 % (0-2); EOSINOPHILS % (AUTO) 1.7 % (0-6); HEMATOCRIT 42.7 % (36.0-47.0); HEMOGLOBIN 14.4 g/dL (12.0-15.5); HGB HCT DIFFERENCE 0.5; LYMPHOCYTES % (AUTO) 21.5 % (13-45); MEAN CORPUSCULAR HEMOGLOBIN 30.8 pg (27.0-33.4); MEAN CORPUSCULAR HGB CONC 33.6 g/dL (32.0-36.0); MEAN CORPUSCULAR VOLUME 92 fl (80-97); MONOCYTES % (AUTO) 6.1 % (3-13); RED BLOOD COUNT 4.67 10^6/uL (3.72-5.28); RED CELL DISTRIBUTION WIDTH 13.5 % (11.5-14.0); WHITE BLOOD COUNT 9.2 10^3/uL (4.0-10.5)
[2016-10-08 17:31] LABS: ALANINE AMINOTRANSFERASE 26 U/L (9-52); ALBUMIN 4.4 g/dL (3.5-5.0); ALKALINE PHOSPHATASE 57 U/L (38-126); ANION GAP 10 (5-19); ASPARTATE AMINO TRANSFERASE 23 U/L (14-36); BILIRUBIN,DIRECT 0.3 mg/dL (0.0-0.4); BILIRUBIN,TOTAL 0.5 mg/dL (0.2-1.3); BLOOD UREA NITROGEN 5 mg/dL (7-20); CALCIUM 9.1 mg/dL (8.4-10.2); CARBON DIOXIDE 30 mmol/L (22-30); CHLORIDE 101 mmol/L (98-107); GLUCOSE 105 mg/dL (75-110); POTASSIUM 3.4 mmol/L (3.6-5.0); SODIUM 140.5 mmol/L (137-145)
--- NOTE | 2016-10-08 19:07 | RADIOLOGY REPORT (SQ) ---
EXAM DESCRIPTION: U/S OB TRANSVAGINAL W/O DOP COMPLETED DATE/TIME: 10/08/2016 6:58 pm REASON FOR STUDY: 5 weeks , LLQ pain COMPARISON: None. TECHNIQUE: Transvaginal static and realtime grayscale images acquired of the pelvis. Additional richard cted spectral and color Doppler images recorded. All images stored on PACs. BHC LIMITATIONS: None. FINDINGS: UTERUS: No visualized intrauterine . RIGHT ADNEXA: Normal ovary with normal vascular flow. No adnexal free fluid. No adnexal masses. LEFT ADNEXA: Normal ovary with normal vascular flow. No adnexal free fluid. No adnexal masses. FREE FLUID: Minimal, not significant. OTHER: No other significant finding. IMPRESSION: NO VISUALIZED INTRA- OR EXTRAUTERINE . bHCG LEVEL TOO LOW TO EXPECT VISUALIZATION OF . ECTOPIC CANNOT BE EXCLUDED. FOLLOW-UP ULTRASOUND AND SERIAL BHCG LEVELS STRONGLY RECOMMENDED TO ACCURATELY ASSESS STATU S. TECHNICAL DOCUMENTATION: JOB ID: [id number] [employer]- All Rights Reserved
== END 2016-10-08 20:00 | disposition home or self-care (01) ==
LOC: ER 14:26
DX: O26.891 Other specified pregnancy related conditions, first trimester (principal); R10.32 Left lower quadrant pain; O21.9 Vomiting of pregnancy, unspecified; O26.851 Spotting complicating pregnancy, first trimester; Z3A.01 Less than 8 weeks gestation of pregnancy; Z87.59 Personal history of other complications of pregnancy, childbirth and the puerperium
CPT/HCPCS: 99284; 96375; 96365; 36415; 84702; 85025; 80053; 81001; 76817; J1200; J2765

== ENCOUNTER 2016-11-23 09:57 | Emergency (ER) | payer BC ==
--- NOTE | 2016-11-23 10:43 | ER Document Report ---
ED GI/ - General Chief Complaint: Abdominal Pain Stated Complaint: LEFT SIDE ABDOMINAL PAIN Time Seen by Provider: 11/23/16 10:33 Mode of Arrival: Ambulatory Notes: 30 yo female 11 weeks c/o intermittent (few seconds) sharp left pelvic pain that woke her up this am (for several days). No bleeding. She wants to make sure everything is OK, had bleeding early in with subchorionic bleed. She has been waiting 6 years for this . Has had lots of nausea during this first trimester. TRAVEL OUTSIDE OF THE [place] IN LAST 30 DAYS: No - Related Data Allergies/Adverse Reactions: No Known Allergies Allergy (Verified 11/23/16 10:06) Past Medical History - General Information source: Patient - Social History Smoking Status: Never Smoker Frequency of alcohol use: None Drug Abuse: None Lives with: Family Family History: Reviewed & Not Pertinent, DM - Medical History Notes: I miscarriage, I ectopic, no fallopian tube loss Renal/ Medical History: Reports: Hx Ectopic . Denies: Hx Peritoneal Dialysis Psychiatric Medical History: Reports: Hx Anxiety, Hx Depression Past Surgical History: Reports: Hx Gynecologic Surgery - Immunizations Hx Diphtheria, Pertussis, Tetanus Vaccination: Yes Review of Systems - Review of Systems Constitutional: No symptoms reported EENT: No symptoms reported Cardiovascular: No symptoms reported Respiratory: No symptoms reported Gastrointestinal: No symptoms reported Genitourinary: No symptoms reported Female Genitourinary: See HPI Musculoskeletal: No symptoms reported Skin: No symptoms reported Hematologic/Lymphatic: No symptoms reported Neurological/Psychological: No symptoms reported Physical Exam - Vital signs Vitals: Temp Pulse Resp BP Pulse Ox 97.7 F 79 16 109/66 100 11/23/16 10:07 11/23/16 10:07 11/23/16 10:07 11/23/16 10:07 11/23/16 10:07 Interpretation: Normal - General General appearance: Appears well, Alert In distress: None - HEENT Head: Normocephalic, Atraumatic Eyes: Normal Pupils: PERRL - Respiratory Respiratory status: No respiratory distress Chest status: Nontender Breath sounds: Normal Chest palpation: Normal - Cardiovascular Rhythm: Regular Heart sounds: Normal auscultation Murmur: No - Abdominal Inspection: Normal Distension: No distension Bowel sounds: Normal Tenderness: Nontender Organomegaly: No organomegaly Notes: fht 163 - Back Back: Normal, Nontender - Extremities General upper extremity: Normal inspection, Nontender, Normal color, Normal ROM , Normal temperature General lower extremity: Normal inspection, Nontender, Normal color, Normal ROM , Normal temperature, Normal weight bearing. No: Jese's sign - Neurological Neuro grossly intact: Yes Cognition: Normal Orientation: AAOx4 [place] Coma Scale Eye Opening: Spontaneous [place] Coma Scale Verbal: Oriented Neal Coma Scale Motor: Obeys Commands [place] Coma Scale Total: 15 Speech: Normal Motor strength normal: LUE, RUE, LLE, RLE Sensory: Normal - Psychological Associated symptoms: Normal affect, Normal mood - Skin Skin Temperature: Warm Skin Moisture: Dry Skin Color: Normal Course - Re-evaluation Re-evalutation: 11/23/16 10:43 heart tones are 163, urine is dilute and sent to lab for UA. 11/23/16 10:43 11/23/16 13:17 Ultrasound shows a viable 11 week with good bilateral ovarian vascular flow. - Vital Signs Vital signs: Temp Pulse Resp BP Pulse Ox 98.4 F 62 16 101/58 L 98 11/23/16 13:48 11/23/16 13:48 11/23/16 13:48 11/23/16 13:48 11/23/16 13:48 Discharge - Discharge Clinical Impression: Viable 11 week IUP, Left pelvic pain Condition: Good Disposition: HOME, SELF-CARE Instructions: Acetaminophen, Pelvic Pain ([facility]) Additional Instructions: to er any concerns, worsening pain or new symptoms tonight see the obgyn doctor tomorrow tylenol for discomfort Please complete the patient satisfaction survey if you get one, and return it.. If you do not receive a survey, then you can go to the [facility] website, [email or web address] and place your comments about your very good care. Thank you very much. It was a pleasure being your medical provider today. Referrals: MARCK SOTO MD [ACTIVE STAFF] - Follow up tomorrow
[2016-11-23 10:59] LABS: APPEARANCE,URINE CLEAR; BILIRUBIN,URINE NEGATIVE (NEGATIVE); GLUCOSE, URINE NEGATIVE (NEGATIVE); KETONES,URINE NEGATIVE (NEGATIVE); LEUKOCYTE ESTERASE,URINE NEGATIVE (NEGATIVE); NITRITE,URINE NEGATIVE (NEGATIVE); PROTEIN,URINE NEGATIVE (NEGATIVE); URINE SPECIFIC GRAVITY 1.001; UROBILINOGEN,URINE NEGATIVE mg/dL (<2.0)
--- NOTE | 2016-11-23 13:15 | RADIOLOGY REPORT (SQ) ---
EXAM DESCRIPTION: U/S 1TRIMESTER/1GEST W/DOPPLER COMPLETED DATE/TIME: 11/23/2016 1:07 pm REASON FOR STUDY: left pelvic pain, 12 weeks COMPARISON: None. TECHNIQUE: Transvaginal static and realtime grayscale images acquired of the pelvis. Additional richard cted spectral and color Doppler images recorded. All images stored on PACs. bHCG: Not available. LIMITATIONS: None. FINDINGS: FETUS: Living intrauterine . EGA: 11 weeks 0 days ALLA: 06/14/2017 FHR: 168 beats per minute. SUBCHORIONIC BLEED: No. SIZE OF BLEED: Not applicable. UTERUS: No masses. No anomalies. CERVICAL LENGTH: 3.2 cm Closed. RIGHT ADNEXA: Normal ovary with normal vascular flow. No adnexal free fluid. No adnexal masses. LEFT ADNEXA: Normal ovary with normal vascular flow. No adnexal free fluid. No adnexal masses. FREE FLUID: None. OTHER: No other significant finding. IMPRESSION: LIVING INTRAUTERINE . EGA 11 WEEKS 0 DAYS. Trimester of : First - 0 to 13 weeks. TECHNICAL DOCUMENTATION: JOB ID: [id number] [employer]- All Rights Reserved
[2016-11-23 13:54] VITALS: BP 101/58
== END 2016-11-23 13:50 | disposition home or self-care (01) ==
LOC: ER 09:57
DX: O26.91 Pregnancy related conditions, unspecified, first trimester (principal); R10.32 Left lower quadrant pain; R10.2 Pelvic and perineal pain; Z3A.11 11 weeks gestation of pregnancy
CPT/HCPCS: 76801; 81001; 93976; 99284

== ENCOUNTER 2017-01-09 15:43 | Emergency (ER) | payer BC, MEDICAID ==
[2017-01-09 15:52] VITALS: BP 113/57
--- NOTE | 2017-01-09 17:07 | RADIOLOGY REPORT (SQ) ---
EXAM DESCRIPTION: CHEST SINGLE VIEW COMPLETED DATE/TIME: 01/09/2017 4:57 pm REASON FOR STUDY: Left rib pain, 18 weeks , one PA view COMPARISON: Two-view chest 02/21/2016 EXAM PARAMETERS: NUMBER OF VIEWS: One view. TECHNIQUE: Single frontal radiographic view of the chest acquired. RADIATION DOSE: NA LIMITATIONS: None. FINDINGS: LUNGS AND PLEURA: No opacities, masses or pneumothorax. No pleural effusion. MEDIASTINUM AND HILAR STRUCTURES: No masses. Contour normal. HEART AND VASCULAR STRUCTURES: Heart normal in size. Normal vasculature. BONES: No acute findings. HARDWARE: None in the chest. OTHER: No other significant finding. IMPRESSION: NO ACUTE RADIOGRAPHIC FINDING IN THE CHEST. TECHNICAL DOCUMENTATION: JOB ID: [id number] [facility]- All Rights Reserved
--- NOTE | 2017-01-09 17:25 | ER Document Report ---
ED General - General Chief Complaint: Abdominal Pain Stated Complaint: UPPER ABDOMINAL PAIN Time Seen by Provider: 01/09/17 16:36 Notes: Patient noted some tenderness and pain and apparent enlargement of her lower left rib cage over the past couple of weeks. She has had no injury to that area. Today, she coughed and felt it pop in that area and it is much more painful. She is not short of breath, however. It does hurt to take a deep breath. No fevers. Patient is 18 weeks . Former smoker. No history of any lung diseases. TRAVEL OUTSIDE OF THE [place] IN LAST 30 DAYS: No - Related Data Allergies/Adverse Reactions: No Known Allergies Allergy (Verified 01/09/17 15:51) Past Medical History - Social History Smoking Status: Former Smoker Frequency of alcohol use: None Drug Abuse: None Family History: Reviewed & Not Pertinent, DM Patient has suicidal ideation: No Patient has homicidal ideation: No - Past Medical History Cardiac Medical History: Denies: Hx Coronary Artery Disease, Hx Heart Attack, Hx Hypertension Pulmonary Medical History: Denies: Hx Asthma, Hx Bronchitis, Hx COPD, Hx Pneumonia Renal/ Medical History: Reports: Hx Ectopic Musculoskeltal Medical History: Denies Hx Arthritis Psychiatric Medical History: Reports: Hx Anxiety, Hx Depression Past Surgical History: Reports: Hx Gynecologic Surgery - Immunizations Hx Diphtheria, Pertussis, Tetanus Vaccination: Yes Review of Systems - Review of Systems Constitutional: denies: Fever Cardiovascular: See HPI Respiratory: See HPI, Cough. denies: Hemoptysis, Short of breath Gastrointestinal: denies: Abdominal pain, Diarrhea, Nausea, Vomiting, Constipation Genitourinary: No symptoms reported Female Genitourinary: No symptoms reported, Skin: No symptoms reported. denies: Rash Physical Exam - Vital signs Vitals: Temp Pulse Resp BP Pulse Ox 97.7 F 66 20 113/57 L 100 01/09/17 15:51 01/09/17 15:51 01/09/17 15:51 01/09/17 15:51 01/09/17 15:51 Interpretation: Normal - Notes Notes: PHYSICAL EXAMINATION: GENERAL: Well-appearing, in no acute distress. Anxious. Vital signs are normal. HEAD: Atraumatic, normocephalic. NECK: Normal range of motion, supple. LUNGS: Breath sounds clear and equal bilaterally. Patient is tender along the costochondral margin of the left lower anterior chest but no abdominal tenderness. HEART: Regular rate and rhythm without murmurs. ABDOMEN: Soft, nontender. No guarding or rebound. BACK: No tenderness throughout entire back. EXTREMITIES: Normal range of motion without pain. No pain or swelling or anything suggesting blood clots. NEUROLOGICAL: Normal speech, normal gait. Normal sensory, motor, and reflex exams. Awake, alert, and oriented x3. Cranial nerves normal. PSYCH: Normal mood, normal affect. SKIN: Warm, dry, no rashes. Course - Vital Signs Vital signs: Temp Pulse Resp BP Pulse Ox 97.7 F 66 20 113/57 L 100 01/09/17 15:51 01/09/17 15:51 01/09/17 15:51 01/09/17 15:51 01/09/17 15:51 - Diagnostic Test Radiology results interpreted by me: 01/09/17 20:16 Single AP view of the chest is normal. Discharge - Discharge Clinical Impression: Left rib cartilage pain, Chest wall pain Condition: Stable Disposition: HOME, SELF-CARE Additional Instructions: CHEST WALL PAIN: Your chest pain may be coming from the chest wall. This is often caused by straining the muscles or joints in the chest during physical activity, direct trauma, coughing, or vigorous vomiting. Persons with arthritis are especially prone to this type of pain, due to inflammation of the cartilage joints near the breast bone. Occasionally, no cause can be found. Rest from strenuous physical activity. This kind of chest pain is usually made worse by movement of the chest. Depending on the symptoms, we may prescribe medicine for pain, muscle relaxation, and antiinflammatory effects. If the pain is new, and seems to be due to muscle strain, cold packs can help. Otherwise, apply gentle warmth to the painful area for 15 minutes every hour or two. You should call contact the doctor immediately if things change. Further evaluation is needed if you develop a fever or cough, if the nature of the pain changes, or if you become short of breath. Her chest x-ray was normal. The pain you are having appears to be from the cartilage at the end of your ribs. You may have some of the cartilage. Tylenol for pain and apply heat to the area for pain relief. USE OF ACETAMINOPHEN (Tylenol): Acetaminophen may be taken for pain relief or fever control. It's much safer than aspirin, offering a wider range of "safe" dosages. It is safe during . Some brand names are Tylenol, Panadol, Datril, Anacin 3, Tempra, and Liquiprin. Acetaminophen can be repeated every four hours. The following are maximum recommended dosages: WEIGHT Dose Drops Elixir Chewable( 80mg) (LBS.) drprs=droppers tsp=teaspoon >89 pounds or adults 650 mg to 900 mg Acetaminophen can be repeated every four hours. Maximum dose not to exceed 4000 mg a day. These maximum recommended dosages are slightly higher than the dosages written on the product container, but these dosages are very safe and below the toxic dosage for acetaminophen. FOLLOW-UP CARE: If you have been referred to a physician for follow-up care, call the physician s office for an appointment as you were instructed or within the next two days. If you experience worsening or a significant change in your symptoms, notify the physician immediately or return to the Emergency Department at any time for re-evaluation. Referrals: ARIK BEARDEN MD [Primary Care Provider] - Follow up as needed
== END 2017-01-09 17:38 | disposition home or self-care (01) ==
LOC: ER 15:43
DX: R07.81 Pleurodynia (principal); R07.89 Other chest pain; R10.10 Upper abdominal pain, unspecified; Z87.891 Personal history of nicotine dependence
CPT/HCPCS: 71010; 99284

== ENCOUNTER 2017-02-04 17:29 | Emergency (ER) | payer BC, MEDICAID ==
--- NOTE | 2017-02-04 17:58 | ER Document Report ---
ED Respiratory Problem - General Chief Complaint: Cough Stated Complaint: COUGH,BODY ACHES Time Seen by Provider: 02/04/17 17:42 Mode of Arrival: Ambulatory Information source: Patient, Relative Notes: Patient is a 31-year-old female comes emergency room with a 24 onset of fever cough congestion runny nose. Patient is also 22 weeks gestation. She complains of generalized body aches and pains fever but unmeasured. states that she did break out in a cold clammy sweat last night and she felt very hot. Patient states she has been congested with a little sore throat as well. She has coughing more when she lays down. [facility] HIMS CLERK group. She denies smoking. Denies any other medical problems. TRAVEL OUTSIDE OF THE [place] IN LAST 30 DAYS: No - HPI Patient complains to provider of: Cough Onset: Yesterday Duration: Continuous, Worse/persistent Initiating Event: URI Quality of pain: Achy Pain Level: 2 Context: Short of Breath: Mild Cough: Nonproductive Sputum amount: None Associated symptoms: Chills, Congestion, Cough, Earache, Runny nose, Sore Throat , Sweaty Similar symptoms previously: Yes Recently seen / treated by doctor: No - Related Data Allergies/Adverse Reactions: No Known Allergies Allergy (Verified 02/04/17 17:29) Past Medical History - General Information source: Patient Last Menstrual Period: 30 weeks ago - Social History Smoking Status: Former Smoker Cigarette use (# per day): No Chew tobacco use (# tins/day): No Smoking Education Provided: No Frequency of alcohol use: None Drug Abuse: None Occupation: Works at a restaurant Lives with: Spouse/Significant other Family History: Reviewed & Not Pertinent, DM - Past Medical History Cardiac Medical History: Denies: Hx Coronary Artery Disease, Hx Heart Attack, Hx Hypertension Pulmonary Medical History: Denies: Hx Asthma, Hx Bronchitis, Hx COPD, Hx Pneumonia Neurological Medical History: Denies: Hx Cerebrovascular Accident, Hx Seizures Renal/ Medical History: Reports: Hx Ectopic . Denies: Hx Peritoneal Dialysis Musculoskeltal Medical History: Denies Hx Arthritis Psychiatric Medical History: Reports: Hx Anxiety, Hx Depression Past Surgical History: Reports: Hx Gynecologic Surgery - Immunizations Hx Diphtheria, Pertussis, Tetanus Vaccination: Yes Review of Systems - Review of Systems Constitutional: Fever, Malaise, Weakness EENT: Ear pain, Nose congestion, Nose discharge, Throat pain, Difficulty swallowing Cardiovascular: No symptoms reported Respiratory: See HPI, Cough Gastrointestinal: No symptoms reported Genitourinary: No symptoms reported Female Genitourinary: No symptoms reported Musculoskeletal: No symptoms reported Skin: No symptoms reported Hematologic/Lymphatic: No symptoms reported Neurological/Psychological: No symptoms reported -: Yes All other systems reviewed and negative Physical Exam - Vital signs Vitals: Temp Pulse Resp BP Pulse Ox 98.5 F 85 16 111/52 L 96 02/04/17 17:38 02/04/17 17:38 02/04/17 17:38 02/04/17 17:38 02/04/17 17:38 Interpretation: Normal - General General appearance: Alert - Ill-appearing In distress: Moderate - HEENT Head: Normocephalic, Atraumatic Eyes: Normal Ears: Normal External canal: Swollen, Other - Examination of the ears bilaterally show patient has cerumen in the external canals but it is minimal and both TMs are visualized completely. Patient complains of right ear pain examination of the right ear showed the TM bulging very dull with fluid behind it. It looks like a type of material. Rest of the exam showed dulling of the TM. Erythematous area surrounding the TM. There was more normal but did have a little bulge with no air-fluid level. Tympanic membrane: Bulging, Purulent effusion Nasal: Purulent discharge Mouth/Lips: Normal Mucous membranes: Moist Pharynx: Normal Neck: Normal, Anterior cervical chain, Lymphadenopathy. No: Posterior cervical chain, Brudzinski, Carotid bruit, Kernig's, Meningismus, Neck mass, Shotty nodes , Subcutaneous emphysema, Supple, Thyroid nodule, Thyromegally, Other - Respiratory Respiratory status: No respiratory distress Chest status: Nontender Breath sounds: Normal. No: Decreased air movement, Nonproductive cough, Productive cough, Rales, Rhonchi, Stridor, Wheezing, Other Chest palpation: Normal - Cardiovascular Rhythm: Regular Heart sounds: Normal auscultation Murmur: No - Neurological Neuro grossly intact: Yes Cognition: Normal Orientation: AAOx4 [place] Coma Scale Eye Opening: Spontaneous Neal Coma Scale Verbal: Oriented Neal Coma Scale Motor: Obeys Commands [place] Coma Scale Total: 15 Speech: Normal Course - Re-evaluation Re-evalutation: 02/04/17 19:11 Patient's influenza came back negative. Given the fact that the right ear was a purulent kind of a fluid behind the TM treat patient with amoxicillin she will take Benadryl [id number] for the congestion portion. She will follow -up with her HIMS CLERK tomorrow or the next day. She has been informed just to take Tylenol only for fever did not cover up and swept this out she needs to stay cool and patient expressed understanding. She is also with her fianc or boyfriend and he also understands that she is not to sweat this out covering up. - Vital Signs Vital signs: Temp Pulse Resp BP Pulse Ox 98.5 F 85 16 111/52 L 96 02/04/17 17:38 02/04/17 17:38 02/04/17 17:38 02/04/17 17:38 02/04/17 17:38 Discharge - Discharge Clinical Impression: Acute otitis media with effusion of right ear Condition: Good Disposition: HOME, SELF-CARE Instructions: Otitis Media ([facility]) Additional Instructions: Home and rest. Medications prescribed. He may take Benadryl 25 or 50 mg every 6 hours for the congestion. Use nasal saline 3 4 times a day to keep the nose moist and secretions thin. I would contact her HIMS CLERK tomorrow to inform them of your situation with the cold. Should you have any concerns or problems return to ER. Remember only take Tylenol for the fever and do not wrap herself up with multiple layers of close try and sweat this out is not good for you or the baby. Prescriptions: Amoxicillin 1 tab PO TID #30 tab
[2017-02-04 19:46] VITALS: BP 107/59
== END 2017-02-04 19:45 | disposition home or self-care (01) ==
LOC: ER 17:29
DX: O26.899 Other specified pregnancy related conditions, unspecified trimester (principal); H66.91 Otitis media, unspecified, right ear; R05 Cough; R09.81 Nasal congestion; H92.01 Otalgia, right ear; R09.89 Other specified symptoms and signs involving the circulatory and respiratory systems; R61 Generalized hyperhidrosis; R53.1 Weakness; R50.9 Fever, unspecified; R13.10 Dysphagia, unspecified; O99.519 Diseases of the respiratory system complicating pregnancy, unspecified trimester; J02.9 Acute pharyngitis, unspecified; O26.819 Pregnancy related exhaustion and fatigue, unspecified trimester; Z3A.00 Weeks of gestation of pregnancy not specified; Z87.891 Personal history of nicotine dependence
CPT/HCPCS: 87804; 99283

== ENCOUNTER 2017-04-01 18:59 | Outpatient (CLI) | payer BC, MEDICAID ==
[2017-04-01 20:06] LABS: APPEARANCE,URINE CLEAR; BILIRUBIN,URINE NEGATIVE (NEGATIVE); COLOR,URINE YELLOW; GLUCOSE, URINE NEGATIVE (NEGATIVE); KETONES,URINE NEGATIVE (NEGATIVE); LEUKOCYTE ESTERASE,URINE LARGE (NEGATIVE); NITRITE,URINE NEGATIVE (NEGATIVE); PROTEIN,URINE NEGATIVE (NEGATIVE); UROBILINOGEN,URINE NEGATIVE mg/dL (<2.0)
[2017-04-01 20:12] LABS: URINE AMPHETAMINES SCREEN NEGATIVE; URINE BARBITURATES SCREEN NEGATIVE; URINE BENZODIAZEPINES SCREEN NEGATIVE; URINE COCAINE SCREEN NEGATIVE; URINE MARIJUANA (THC) SCREEN NEGATIVE; URINE METHADONE SCREEN NEGATIVE; URINE PHENCYCLIDINE SCREEN NEGATIVE
== END 2017-04-01 20:51 | disposition home or self-care (01) ==
LOC: LC 18:59
PROVIDERS: ATTEND Obstetrics & Gynecology Gynecology
PROC: 4A1HXCZ Monitoring of Products of Conception, Cardiac Rate, External Approach (ICD-10-PCS; principal; 2017-04-01)
DX: O26.893 Other specified pregnancy related conditions, third trimester (principal); Z3A.29 29 weeks gestation of pregnancy
CPT/HCPCS: 80307; 81001

== ENCOUNTER 2017-05-21 09:32 | Emergency (ER) | payer BC, MEDICAID ==
[2017-05-21] MEDS ORDERED: PROMETHAZINE HCL INJ 25 MG/1 ML VIAL IV ONE (09:49)
[2017-05-21] MEDS ORDERED: RINGERS SOLUTION,LACTATED 1,000 ML IV ONE (09:50)
--- NOTE | 2017-05-21 09:52 | ER Document Report ---
ED Medical Screen (RME) - General Chief Complaint: Vomiting Stated Complaint: VOMITING Time Seen by Provider: 05/21/17 09:46 Notes: RME DISCLOSURE I have seen this patient as part of a Rapid Medical Evaluation and, if applicable, placed any initially appropriate orders. The patient will be seen and fully evaluated, including a full history and physical exam, by a provider ( in Main ED or Fast Track) when a room becomes available. 31-year-old female approximately 37 weeks gestation here with complaints of nausea vomiting diarrhea that started approximately 6 hours ago. He has vomited 4 times and had greater than 10 episodes of watery diarrhea. She has some upper abdominal pain but states this started after vomiting and feels it may be due to the vomiting episodes. No known sick contacts. She ate the same last meal as the rest of her family and no one else has become ill. She was told not to take Zofran during her so she did not try taking any and states that she does not have any Phenergan at home. She can still feel the baby's movements. TRAVEL OUTSIDE OF THE [place] IN LAST 30 DAYS: No - Related Data Allergies/Adverse Reactions: No Known Allergies Allergy (Verified 05/21/17 09:37) Past Medical History - Social History Frequency of alcohol use: None Drug Abuse: None - Past Medical History Cardiac Medical History: Denies: Hx Coronary Artery Disease, Hx Heart Attack, Hx Hypertension Pulmonary Medical History: Denies: Hx Asthma, Hx Bronchitis, Hx COPD, Hx Pneumonia Neurological Medical History: Denies: Hx Cerebrovascular Accident, Hx Seizures Renal/ Medical History: Reports: Hx Ectopic . Denies: Hx Peritoneal Dialysis Musculoskeltal Medical History: Denies Hx Arthritis Psychiatric Medical History: Reports: Hx Anxiety, Hx Depression Past Surgical History: Reports: Hx Gynecologic Surgery - Immunizations Hx Diphtheria, Pertussis, Tetanus Vaccination: Yes Physical Exam - Vital signs Vitals: Temp Pulse Resp BP Pulse Ox 98.5 F 87 14 107/65 98 05/21/17 09:36 05/21/17 09:36 05/21/17 09:36 05/21/17 09:36 05/21/17 09:36 Course - Vital Signs Vital signs: Temp Pulse Resp BP Pulse Ox 98.5 F 87 14 107/65 98 05/21/17 09:36 05/21/17 09:36 05/21/17 09:36 05/21/17 09:36 05/21/17 09:36
[2017-05-21 10:16] LABS: HEMATOCRIT 40.6 % (36.0-47.0); HEMOGLOBIN 13.1 g/dL (12.0-15.5); MEAN CORPUSCULAR HEMOGLOBIN 28.3 pg (27.0-33.4); MEAN CORPUSCULAR HGB CONC 32.3 g/dL (32.0-36.0); MEAN CORPUSCULAR VOLUME 88 fl (80-97); PLATELET COUNT 206 10^3/uL (150-450); RED BLOOD COUNT 4.62 10^6/uL (3.72-5.28); RED CELL DISTRIBUTION WIDTH 12.9 % (11.5-14.0); WHITE BLOOD COUNT 18.1 10^3/uL (4.0-10.5)
[2017-05-21 10:36] LABS: ALANINE AMINOTRANSFERASE 25 U/L (9-52); ALBUMIN 3.9 g/dL (3.5-5.0); ALKALINE PHOSPHATASE 157 U/L (38-126); ANION GAP 8 (5-19); ASPARTATE AMINO TRANSFERASE 15 U/L (14-36); BILIRUBIN,DIRECT 0.1 mg/dL (0.0-0.4); BILIRUBIN,TOTAL 0.4 mg/dL (0.2-1.3); BLOOD UREA NITROGEN 7 mg/dL (7-20); CALCIUM 9.2 mg/dL (8.4-10.2); CARBON DIOXIDE 23 mmol/L (22-30); CHLORIDE 107 mmol/L (98-107); GLUCOSE 82 mg/dL (75-110); LIPASE 84.1 U/L (23-300); POTASSIUM 4.3 mmol/L (3.6-5.0); SODIUM 138.4 mmol/L (137-145); TOTAL PROTEIN 6.5 g/dL (6.3-8.2)
[2017-05-21 10:39] LABS: ABSOLUTE LYMPHOCYTES# (MANUAL) 0.7 10^3/uL (0.5-4.7); ABSOLUTE MONOCYTES # (MANUAL) 0.9 10^3/uL (0.1-1.4); ABSOLUTE NEUTROPHILS# (MANUAL) 16.5 10^3/uL (1.7-8.2); BAND NEUTROPHILS % (MANUAL) 2 % (3-5); BASOPHILS % (MANUAL) 0 % (0-2); EOSINOPHILS % (MANUAL) 0 % (0-6); LYMPHOCYTES % (MANUAL) 3 % (13-45); MONOCYTES % (MANUAL) 5 % (3-13); PLATELET COMMENT ADEQUATE; RBC MORPHOLOGY COMMENT NORMO-CYTIC/CHROMIC; SEGMENTED NEUTROPHILS % (MAN) 89 % (42-78); TOTAL CELLS COUNTED 100; TOXIC GRANULATION SLIGHT
[2017-05-21] MEDS ORDERED: NORMAL SALINE 1000 ML 1,000 ML IV ONE ×2 (10:47→12:38)
--- NOTE | 2017-05-21 10:48 | ER Document Report ---
ED General - General Chief Complaint: Vomiting Stated Complaint: VOMITING Time Seen by Provider: 05/21/17 09:46 Mode of Arrival: Ambulatory Information source: Patient TRAVEL OUTSIDE OF THE [place] IN LAST 30 DAYS: No - HPI Notes: 31 old female 5 para 3 who is 37 weeks presents today with sudden onset nausea vomiting and diarrhea that started 6 hours ago. Denies any new medications, foods, travel. Patient does has 2 small kids at home, states they are not sick. Patient did not have any antiemetic at home, her OPERATIONS LABEL CLERK, [facility] told her not to take any Zofran. Patient has been feeling baby move hourly. States her has been uncomplicated denies any history of preeclampsia, gestational diabetes. Denies any chronic issues. Reports she has not had an appetite, but she has been trying to keep some fluids in her. Denies fevers, chills, chest pain,palpitations, shortness of breath, dyspnea, hematuria,blurred vision, double vision, loss of vision, speech changes, LH, dizziness, syncope, headaches, wheezing, ST, URI, neck pain , weakness, bowel or bladder dysfunction, saddle anesthesia, numbness or tingling in bilateral upper or lower extremities equally, muscle paralysis, weakness in bilateral upper or lower extremities equally or rash. Denies IV drug use. - Related Data Allergies/Adverse Reactions: No Known Allergies Allergy (Verified 05/21/17 09:37) Past Medical History - General Information source: Patient - Social History Smoking Status: Former Smoker Frequency of alcohol use: None Drug Abuse: None Family History: Reviewed & Not Pertinent, DM Patient has suicidal ideation: No Patient has homicidal ideation: No - Past Medical History Cardiac Medical History: Denies: Hx Coronary Artery Disease, Hx Heart Attack, Hx Hypertension Pulmonary Medical History: Denies: Hx Asthma, Hx Bronchitis, Hx COPD, Hx Pneumonia Neurological Medical History: Denies: Hx Cerebrovascular Accident, Hx Seizures Renal/ Medical History: Reports: Hx Ectopic . Denies: Hx Peritoneal Dialysis Musculoskeltal Medical History: Denies Hx Arthritis Psychiatric Medical History: Reports: Hx Anxiety, Hx Depression Past Surgical History: Reports: Hx Gynecologic Surgery - Immunizations Hx Diphtheria, Pertussis, Tetanus Vaccination: Yes Review of Systems - Review of Systems Notes: REVIEW OF SYSTEMS: CONSTITUTIONAL : Denies fever, chills, or sweats. Denies recent illness. EENT: Denies eye, ear, throat, or mouth pain or symptoms. Denies nasal or sinus congestion or discharge. Denies throat, tongue, or mouth swelling or difficulty swallowing. CARDIOVASCULAR: Denies chest pain. Denies palpitations or racing or irregular heart beat. Denies ankle edema. RESPIRATORY: Denies cough, cold, or chest congestion. Denies shortness of breath, difficulty breathing, or wheezing. GASTROINTESTINAL: Denies abdominal pain or distention. Denies nausea, vomiting , or diarrhea. Denies blood in vomitus, stools, or per rectum. Denies black, tarry stools. Denies constipation. GENITOURINARY: Denies difficulty urinating, painful urination, burning, frequency, blood in urine, or discharge. FEMALE GENITOURINARY: Denies vaginal bleeding, heavy or abnormal periods, irregular periods. Denies vaginal discharge or odor. MUSCULOSKELETAL: Denies back or neck pain or stiffness. Denies joint pain or swelling. SKIN: Denies rash, lesions or sores. HEMATOLOGIC : Denies easy bruising or bleeding. LYMPHATIC: Denies swollen, enlarged glands. NEUROLOGICAL: Denies confusion or altered mental status. Denies passing out or loss of consciousness. Denies dizziness or lightheadedness. Denies headache. Denies weakness or paralysis or loss of use of either side. Denies problems with gait or speech. Denies sensory loss, numbness, or tingling. Denies seizures. PSYCHIATRIC: Denies anxiety or stress. Denies depression, suicidal ideation, or homicidal ideation. ALL OTHER SYSTEMS REVIEWED AND NEGATIVE. PHYSICAL EXAMINATION: GENERAL: Well-appearing, well-nourished and in no acute distress. HEAD: Atraumatic, normocephalic. EYES: Pupils equal round and reactive to light, extraocular movements intact, conjunctiva are normal. ENT: Nares patent, oropharynx clear without exudates. Moist mucous membranes. NECK: Normal range of motion, supple without lymphadenopathy LUNGS: Breath sounds clear to auscultation bilaterally and equal. No wheezes rales or rhonchi. HEART: Regular rate and rhythm without murmurs ABDOMEN: Soft, nondistended abdomen. Right quadrant tenderness on palpation, no rebound no guarding, no rebound. No masses appreciated. Female : deferred Musculoskeletal: Normal range of motion, no pitting or edema. No cyanosis. NEUROLOGICAL: Cranial nerves grossly intact. Normal speech, normal gait. Normal sensory, motor exams PSYCH: Normal mood, normal affect. SKIN: Warm, Dry, normal turgor, no rashes or lesions noted. Dictation was performed using Snaps voice recognition software Physical Exam - Vital signs Vitals: Temp Pulse Resp BP Pulse Ox 98.5 F 87 14 107/65 98 05/21/17 09:36 05/21/17 09:36 05/21/17 09:36 05/21/17 09:36 05/21/17 09:36 Course - Re-evaluation Re-evalutation: 05/21/17 11:07 Healthy 31-year-old female who is afebrile presents today with sudden onset nausea vomiting and diarrhea. She reports right lower quadrant abdominal pain. Patient reports she has not had any nausea or vomiting in the last hour.Dr.Timothy Walsh, surgeon on-call, called to requested at [phone] for a consult to assess for appendicitis due to right lower quadrant pain, leukocytosis of 18 with bands and the fact that she is 37 weeks likely ultrasound will not be able to conclusively say if patient does or does not have an appendicitis. will consult with me after abdominal ultrasound is completed. [facility], patient's MENDING CARRIER, contacted Dr. Belkys Maldonado at [phone] to make aware that patient is here, that she is experiencing right lower quadrant pain with a leukocytosis of 18. Dr. Maldonado states that she has seen a high level of gastroenteritis is with her females with right lower quadrant pain, considering that this is new onset with nausea vomiting and diarrhea the likelihood of appendicitis is low however also would like to wait till after that on ultrasound is read. Patient has had 2 L of fluid and is on maintenance 125ml/hr, states she is feeling much better. Ultrasound shows that the appendix is not visualized, essentially is normal and unremarkable. Dr. Walsh consulted, did not feel that patient displayed any signs of peritonitis or appendicitis, patient has improved with IV hydration, and although appendix is not visualized, there was no showing of free fluid in the abdomen indicating any rupture. Patient does have an appointment tomorrow morning at [facility] at [phone] Jeffries, dumper operator. Patient given strict instructions with her and her regarding to return to the emergency room if she experiences any worsening abdominal pain , nausea vomiting, fever, diarrhea, etc., patient and verbalized understanding of this plan of care and agree with plan of care. All questions answered. Patient discharged home without incident. - Vital Signs Vital signs: Temp Pulse Resp BP Pulse Ox 98.9 F 76 18 108/86 H 100 05/21/17 15:13 05/21/17 15:13 05/21/17 15:13 05/21/17 15:13 05/21/17 15:13 - Laboratory Result Diagrams: 05/21/17 09:54 05/21/17 09:54 Laboratory results interpreted by me: 05/21/17 05/21/17 09:54 09:54 WBC 18.1 H Seg Neuts % (Manual) 89 H Band Neutrophils % 2 L Lymphocytes % (Manual) 3 L Abs Neuts (Manual) 16.5 H Alkaline Phosphatase 157 H Discharge - Discharge Clinical Impression: Gastroenteritis, Right lower quadrant pain, Condition: Good Disposition: HOME, SELF-CARE Instructions: Gastroenteritis (adult) ([facility]), Observation for Appendicitis ([facility]) Additional Instructions: Gastroenteritis You most likely have gastroenteritis. This is an irritation of the stomach and intestinal tract. It's usually caused by a virus, but can also be caused by bacteria, toxins that cause food poisoning, or excessive alcohol intake. Symptoms may include fever, painful abdominal cramps, nausea, vomiting , and diarrhea. Start with small amounts (two to six ounces) of clear liquids (soft drinks , herb teas, broth, etc). Try to take fluids frequently even if you are vomiting, to prevent dehydration. When liquids are being consumed successfully , advance to small amounts of bland food (mashed potato, toast) for 6 - 12 hours. Gastroenteritis rarely requires medication. It goes away by itself. Use good handwashing so you don't spread germs. Wash underwear in very hot water. If symptoms are severe, talk to the doctor. Call your physician if blood appears in your vomitus or stool, if vomiting lasts longer than 24 hours, if the abdominal pain worsens or becomes localized to one area, or if you develop high fever. Abdominal Pain There are many causes of abdominal pain. Pain can mean a serious problem requiring surgery (such as appendicitis). It can also be an innocent problem that goes away on its own (such as a viral infection). Often, time must pass to determine the cause of pain. The physician does not feel that hospitalization is necessary, at present. Things may change within the next 24 hours. Call the doctor or come back for re- examination if any problems occur, such as: (1) Pain that becomes more severe, steady, or becomes concentrated in one specific area. Also, pain that is more severe with movement or coughing. (2) Vomiting that persists or becomes more frequent. (3) Blood in the vomitus, urine, or bowel movements. Blood in the stool may have a tarry or black appearance. (4) Shaking chills or fever greater than 100 degrees F. (5) The abdomen becomes more distended or swollen. (6) Bowel movements cease. (7) Failure to improve as expected. Return immediately for any new or worsening symptoms. Follow up with primary care provider, call tomorrow to make followup appointment. Referrals: BEN JEFFRIES CNM [CERTIFIED NURSE ENGINEERING PROFESSOR] - Follow up tomorrow ARIK BEARDEN MD [Primary Care Provider] - Follow up tomorrow (09:15)
[2017-05-21 11:25] LABS: APPEARANCE,URINE SLIGHTLY-CLOUDY; BILIRUBIN,URINE NEGATIVE (NEGATIVE); COLOR,URINE YELLOW; GLUCOSE, URINE NEGATIVE (NEGATIVE); KETONES,URINE NEGATIVE (NEGATIVE); LEUKOCYTE ESTERASE,URINE NEGATIVE (NEGATIVE); NITRITE,URINE NEGATIVE (NEGATIVE); PROTEIN,URINE NEGATIVE (NEGATIVE); UROBILINOGEN,URINE NEGATIVE mg/dL (<2.0)
--- NOTE | 2017-05-21 11:52 | PDOC CONSULTATION ---
Consultation Consult Date: 05/21/17 Consult reason:: Abdominal pain nausea diarrhea History of Present Illness Admission Date/PCP: ARIK BEARDEN MD Patient complains of: Abdominal pain History of Present Illness: PADDY CONTEH is a 31 year old female She was brought by [facility] rescue also [facility] emergency department complaining of abdominal pain nausea and vomiting and diarrhea, the latter 10 all starting this morning at approximately 4 AM suddenly. Patient denies contact with sick people, history of trauma, previous gastroenterologic problems. Patient seen in the emergency department where she is found to have right lower quadrant tenderness. She had a leukocytosis 18,000. Surgery was consulted because of concern for acute appendicitis. Of note the patient is 37 weeks single intrauterine . She is a . She has a history of ectopic pregnancies in the past. Past Medical History Cardiac Medical History: Denies: Coronary Artery Disease, Myocardial Infarction, Hypertension Pulmonary Medical History: Denies: Asthma, Bronchitis, Chronic Obstructive Pulmonary Disease (COPD), Pneumonia Neurological Medical History: Denies: Seizures Musculoskeltal Medical History: Denies: Arthritis Psychiatric Medical History: Reports: Depression Hematology: Denies: Anemia Past Surgical History Past Surgical History: Reports: Other - Gynecologic procedure for ectopic Social History Smoking Status: Former Smoker Frequency of Alcohol Use: None Hx Recreational Drug Use: No Hx Prescription Drug Abuse: No Family History Family History: Reviewed & Not Pertinent, DM Parental Family History Reviewed: Yes Children Family History Reviewed: Yes Sibling(s) Family History Reviewed.: Yes Medication/Allergy Home Medications: No122/Iron/Folic Acid [ Multi Tablet] 1 each PO DAILY 10/08/16 Acetaminophen [Tylenol 325 mg Tablet] 650 mg PO Q4HP PRN 04/01/17 Allergies/Adverse Reactions: No Known Allergies Allergy (Verified 05/21/17 09:37) Review of Systems Eyes: ABSENT: visual disturbances Ears: ABSENT: hearing changes Cardiovascular: ABSENT: chest pain, dyspnea on exertion, edema, orthropnea, palpitations Gastrointestinal: PRESENT: other - As per HPI. ABSENT: abdominal pain, constipation, diarrhea, hematemesis, hematochezia, nausea, vomiting Neurological: ABSENT: abnormal gait, abnormal speech, confusion, dizziness, focal weakness, syncope Psychiatric: ABSENT: anxiety, depression, homidical ideation, suicidal ideation Physical Exam Vital Signs: Temp Pulse Resp BP Pulse Ox 98.5 F 87 14 107/65 98 05/21/17 09:36 05/21/17 09:36 05/21/17 09:36 05/21/17 09:36 05/21/17 09:36 General appearance: PRESENT: mild distress Head exam: PRESENT: normocephalic Eye exam: PRESENT: EOMI Mouth exam: PRESENT: dry mucosa Respiratory exam: PRESENT: chest wall tenderness Cardiovascular exam: PRESENT: RRR Pulses: PRESENT: normal carotid pulses, normal radial pulses GI/Abdominal exam: PRESENT: diminished bowel sounds, other - The abdomen is distended consistent with 37 week intrauterine . There are no peritoneal signs no rigidity no guarding. There may be slightly more tenderness in the right lower quadrant but mild. I cannot appreciate any masses. Results Laboratory Results: 05/21/17 09:54 05/21/17 09:54 05/21/17 05/21/17 05/21/17 09:54 09:54 10:50 WBC 18.1 H RBC 4.62 Hgb 13.1 Hct 40.6 MCV 88 MCH 28.3 MCHC 32.3 RDW 12.9 Plt Count 206 Seg Neutrophils % Not Reportable Lymphocytes % Not Reportable Monocytes % Not Reportable Eosinophils % Not Reportable Basophils % Not Reportable Absolute Neutrophils Not Reportable Absolute Lymphocytes Not Reportable Absolute Monocytes Not Reportable Absolute Eosinophils Not Reportable Absolute Basophils Not Reportable Sodium 138.4 Potassium 4.3 Chloride 107 Carbon Dioxide 23 Anion Gap 8 BUN 7 Creatinine 0.54 Est GFR ( Amer) > 60 Est GFR (Non-Af Amer) > 60 Glucose 82 Calcium 9.2 Total Bilirubin 0.4 AST 15 ALT 25 Alkaline Phosphatase 157 H Total Protein 6.5 Albumin 3.9 Lipase 84.1 Urine Color YELLOW Urine Appearance SLIGHTLY-CLOUDY Urine pH 5.0 Ur Specific [place] 1.020 Urine Protein NEGATIVE Urine Glucose (UA) NEGATIVE Urine Ketones NEGATIVE Urine Blood NEGATIVE Urine Nitrite NEGATIVE Ur Leukocyte Esterase NEGATIVE Urine WBC (Auto) 3 Urine RBC (Auto) 0 Assessment & Plan - Diagnosis (1) Abdominal pain Qualifiers: Abdominal location: right upper quadrant Qualified Code(s): R10.11 - Right upper quadrant pain Is this a current diagnosis for this admission?: Yes Plan: Sent is in the emergency department complaining of abdominal pain, but less so since onset early this morning. She is being fluid resuscitated. Peritoneal signs, and barely localizes to the right lower quadrant. Do not believe she has peritonitis ReCommendations: 1. Continue IV hydration; obtain right lower quadrant ultrasonography 2. We will follow patient closely with you and reassess after ultrasonography performed. Discussed the above with the emergency room provider. (2) Intrauterine Is this a current diagnosis for this admission?: Yes (3) Tobacco dependence Is this a current diagnosis for this admission?: Yes (4) History of ectopic Is this a current diagnosis for this admission?: Yes - Time Time Spent: 30 to 50 Minutes Smoking Cessation Education: over 10 minutes Anticipated discharge: Home
--- NOTE | 2017-05-21 13:02 | RADIOLOGY REPORT (SQ) ---
EXAM DESCRIPTION: U/S ABDOMEN LIMITED W/O DOP COMPLETED DATE/TIME: 05/21/2017 12:43 pm REASON FOR STUDY: 37wpreg,+leuk,r/oapp,daugherty,liver,gall COMPARISON: None. TECHNIQUE: Dynamic and static grayscale images acquired of the abdomen and recorded on PACS. Additio nal selected color Doppler and spectral images recorded. LIMITATIONS: Patient is . Gravid uterus partially obscures the abdominal aorta. Appendix not visualized on exam of the right lower quadrant. FINDINGS: PANCREAS: Midline pancreas unremarkable LIVER: No masses. Echotexture normal. LIVER VASCULATURE: Normal directional flow of the main portal vein and hepatic veins. GALLBLADDER: No stones. Normal wall thickness. No pericholecystic fluid. ULTRASOUND-DETECTED ADAMS'S SIGN: Negative. INTRAHEPATIC DUCTS AND COMMON DUCT: CBD and intrahepatic ducts normal caliber. No filling defects. INFERIOR VENA CAVA: Normal flow. AORTA: No aneurysm. RIGHT KIDNEY: Normal size. Normal echogenicity. No solid or suspicious masses. No hydronephrosis. No calcifications. PERITONEAL AND RIGHT PLEURAL SPACE: No ascites or effusions. OTHER: Appendix not visualized. Normal size right ovary. IMPRESSION: No gallstones, gallbladder wall thickening or pericholecystic fluid. Negative sonograph ic Adams's sign. No right hydronephrosis or upper hydroureter. Appendix not visualized TECHNICAL DOCUMENTATION: JOB ID: [id number] All Rights Reserved Reading location - IP/workstation name: [email or web address]
[2017-05-21 15:14] VITALS: BP 108/86
== END 2017-05-21 15:14 | disposition home or self-care (01) ==
LOC: ER 09:32
DX: O99.613 Diseases of the digestive system complicating pregnancy, third trimester (principal); K52.9 Noninfective gastroenteritis and colitis, unspecified; O26.893 Other specified pregnancy related conditions, third trimester; R10.31 Right lower quadrant pain; R63.0 Anorexia; O21.2 Late vomiting of pregnancy; Z3A.37 37 weeks gestation of pregnancy; Z87.891 Personal history of nicotine dependence
CPT/HCPCS: 99284; 96361; 96365; 36415; 87040; 83690; 82570; 85025; 80053; 81001; 83605; 76705; J2550; J7030; J7120

== ENCOUNTER 2017-05-22 11:20 | Inpatient (IN) | payer BC, MEDICAID ==
--- NOTE | 2017-05-22 11:41 | Non Stress Test Report ---
Non Stress Test Datetime Report Generated by CPN: 05/22/2017 11:40 DEMOGRAPHIC EGA NST: 37.0 INDICATION Indication for Study: Ordered by Provider MONITORING Monitor Explained: Monitor Explained; Test Explained; Patient Verbalized Understanding Time on Monitor: 05/21/2017 16:25 Time off Monitor: 05/21/2017 17:36 NST Duration: 71 NST INTERVENTIONS NST Interventions: PO Hydration; Reposition Patient Physician Notified NST: Dr. Joel BABY A: [id number] BABY A Contraction Frequency : None FHR Baseline : 145 Accelerations : 15X15 Decelerations : None Variability : Moderate 6-25bpm NST Review: Meets Criteria for Reactive NST NST Review and Verified By : MERCEDES Sweet Results: Reactive NST REPORT Report Trigger: Send Report
[2017-05-22 12:24] LABS: APPEARANCE,URINE CLEAR; BILIRUBIN,URINE NEGATIVE (NEGATIVE); COLOR,URINE STRAW; GLUCOSE, URINE NEGATIVE (NEGATIVE); KETONES,URINE NEGATIVE (NEGATIVE); LEUKOCYTE ESTERASE,URINE TRACE (NEGATIVE); NITRITE,URINE NEGATIVE (NEGATIVE); PROTEIN,URINE NEGATIVE (NEGATIVE); URINE SPECIFIC GRAVITY 1.005; UROBILINOGEN,URINE NEGATIVE mg/dL (<2.0)
[2017-05-22 12:28] LABS: AMNISURE (ROM) NEGATIVE (NEGATIVE)
[2017-05-22 12:43] LABS: URINE AMPHETAMINES SCREEN NEGATIVE; URINE BARBITURATES SCREEN NEGATIVE; URINE BENZODIAZEPINES SCREEN NEGATIVE; URINE COCAINE SCREEN NEGATIVE; URINE MARIJUANA (THC) SCREEN NEGATIVE; URINE METHADONE SCREEN NEGATIVE; URINE PHENCYCLIDINE SCREEN NEGATIVE
--- NOTE | 2017-05-22 12:53 | Non Stress Test Report ---
Non Stress Test Datetime Report Generated by CPN: 05/22/2017 12:52 DEMOGRAPHIC EGA NST: 37.1 INDICATION Indication for Study (NST) Other: LC - decreased MEHDI MONITORING Monitor Explained: Monitor Explained; Test Explained; Patient Verbalized Understanding Time on Monitor: 05/22/2017 11:42 Time off Monitor: 05/22/2017 12:46 NST Duration: 64 NST INTERVENTIONS NST Interventions: PO Hydration; IV Fluids; Reposition Patient Physician Notified NST: Dr Currie BABY A Movement : Present Contraction Frequency : 0 Accelerations : 15X15 Decelerations : None Variability : Moderate 6-25bpm NST Review: Meets Criteria for Reactive NST NST Review and Verified By : D Bellavance RNC NST Results: Reactive NST REPORT Report Trigger: Send Report
--- NOTE | 2017-05-22 17:26 | RADIOLOGY REPORT (SQ) ---
EXAM DESCRIPTION: U/S OB LIMITED COMPLETED DATE/TIME: 05/22/2017 5:13 pm REASON FOR STUDY: need MEHDI and SDP/MVP - maximum pocket COMPARISON: None. TECHNIQUE: Limited transabdominal grayscale ultrasound for evaluation of specific requested obstetri raghavendra parameters. LIMITATIONS: None. FINDINGS: MEHDI: 4.2 cm MVP: 2.24 cm. FHR: 143 beats per minute. PRESENTATION: Cephalic. OTHER: Anterior placenta. IMPRESSION: LIMITED OBSTETRICAL ULTRASOUND WITH MEASURED PARAMETERS DELINEATED ABOVE. Trimester of : Third trimester - 28 weeks to delivery. TECHNICAL DOCUMENTATION: JOB ID: [id number] [employer]- All Rights Reserved Reading location - IP/workstation name: [email or web address]
[2017-05-22] MEDS ORDERED: RINGERS SOLUTION,LACTATED 300 ML IV ONE (17:43)
[2017-05-22] MEDS ORDERED: DINOPROSTONE 10 MG VAGINAL INSERT.SR PV PRN (17:43)
--- NOTE | 2017-05-22 18:12 | Admission Physical ---
Datetime Report Generated by CPN: 05/22/2017 18:12 CURRENT ADMISSION Hx Assessment: The History has been Reviewed and is Current Chief Complaint: Other Chief Complaint Other: bhavna: 3.8 Indication for Induction: Oligohydramnios Admit Impression : Term, Intrauterine ; No Active Labor; Intact Membranes; Induction of Labor Admit Plan: Admit to Unit; Initiate Labor Induction Protocol ALLERGIES Medication Allergies: No Medication Allergies: No Known Allergies (05/22/2017) Latex: No Latex Allergies Food Allergies: N/A Environmental Allergies: N/A OBSTETRICAL HISTORY EDC: 06/11/2017 00:00 : 5 Para: 2 Term: 2 : 0 SAB: 1 IAB: 0 Ectopic: 1 Livin Cesareans: 0 VBACs: 0 Multiple Births: 0 Gestational Diabetes: No Rh Sensitization: No Incompetent Cervix: No DILAN: No Infertility: No ART Treatment: No Uterine Anomaly: No IUGR: No Hx Previous C/S: No Macrosomia: No Hx Loss/Stillborn: No PIH: No Hx : No Placenta Previa/Abruption: No Depression/PP Depression: No PTL/PROM: No Post Hemorrhage: No Current Procedures: Ultrasound Obstetrical History Comments: G1 - 2006, , Girl, 40 weeks G2 - 2009, , Girl, 39 weeks G3 - 2015, Etopic G4 - 2016, SAB G5 - Current SEE RECORDS Alcohol: No Marijuana : No Cocaine: No Other Illicit Drugs: No Cigarettes: Former Smoker. [id number] Cigarette Frequency: 5 - 10 per day Advised to Stop: Yes Cigarette Comments: Stopped smoking during MEDICAL HISTORY Diabetes: No Blood Transfusion: No Pulmonary Disease (Asthma, TB): No Breast Disease: No Hypertension: No Data Reduction Technician Surgery: Yes Heart Disease: No Hosp/Surgery: No Autoimmune Disorder: No Anesthetic Complications: No Kidney Disease: No Abnormal Pap Smear: No Neuro/Epilepsy: No Psychiatric Disorders: No Other Medical Diseases: No Hepatitis/Liver Disease: No Significant Family History: No Varicosities/Phlebitis: No Trauma/Violence : No Thyroid Dysfunction: No Medical History Comments: 2016 - Etopic INFECTIOUS HISTORY Gonorrhea: No Genital Herpes: No Chlamydia: No Tuberculosis: No Syphilis: No Hepatitis: No HIV/AIDS Exposure: No Rash or Viral Illness: No HPV: No PHYSICAL EXAM General: Normal HEENT: Normal Neurologic: Normal Thyroid: Deferred Heart: Normal Lungs: Normal Breast: Normal Back: Normal Abdomen: Normal Genitourinary Exam: Normal Extremities: Normal DTRs: Normal Pelvic Type: Adequate Physical Exam Comments: pelvis proven 7 lbs 7oz Vital Signs: Reviewed VAGINAL EXAM Dilatation: 2 Effacement: 60 Station: -1 Contraction Comments: rare MEMBRANES Membranes: Intact Amniotic Fluid Color: Clear FETUS A EGA: 37.1 Monitoring: External US FHR- Baseline: 135 Variability: Moderate 6-25bpm Accelerations: 15X15 Decelerations: None FHR Category: Category I Estimated Weight (gm): 3200 Presentation: Vertex Admit Comment: Sent over for low bhavna, bhavna remained unchanged after hydration and repeat sono, mfm recommends delivery. No s/sx ROM, active baby. Admit to l and d gbs neg will do cooks cath and pitocin uncomplicated, former smoker. PLANS FOR LABOR AND DELIVERY Labor and Delivery: None Pain Management: Epidural Feeding Preference: Both Benefit of Breast Feed Discussed: Yes Circumcision: Yes INFORMED CONSENT Assignment: Abigail Currie MD Signature: with User ID: Shayan : with User ID: Shayan
[2017-05-22 18:17] LABS: ABSOLUTE EOSINOPHILS # (AUTO) 0.1 10^3/uL (0.0-0.6); ABSOLUTE LYMPHOCYTES (AUTO) 1.7 10^3/uL (0.5-4.7); ABSOLUTE NEUT (AUTO) 6.5 10^3/uL (1.7-8.2); BASOPHILS % (AUTO) 0.3 % (0-2); EOSINOPHILS % (AUTO) 1.1 % (0-6); HEMATOCRIT 32.8 % (36.0-47.0); LYMPHOCYTES % (AUTO) 18.4 % (13-45); MEAN CORPUSCULAR HEMOGLOBIN 29.2 pg (27.0-33.4); MEAN CORPUSCULAR HGB CONC 33.5 g/dL (32.0-36.0); MEAN CORPUSCULAR VOLUME 87 fl (80-97); PLATELET COUNT 188 10^3/uL (150-450); RED BLOOD COUNT 3.76 10^6/uL (3.72-5.28); RED CELL DISTRIBUTION WIDTH 12.8 % (11.5-14.0); SEGMENTED NEUTROPHILS % (AUTO) 69.2 % (42-78); TOTAL CELLS COUNTED % (AUTO) 100 %; WHITE BLOOD COUNT 9.4 10^3/uL (4.0-10.5)
[2017-05-22] MEDS ORDERED: NALBUPHINE HCL INJ 10 MG/1 ML AMPULE ONE (18:29)
--- NOTE | 2017-05-22 20:12 | L&D Progress Notes ---
PROGRESS NOTES Datetime Report Generated by CPN: 05/22/2017 20:11 PROGRESS NOTE Procedures: Sterile Vag Exam Procedures- Other: cooks cath placed without difficulty Plan: Continue Present Management; Induction Informed Consent Obtained: Induction of Labor Vital Signs : Reviewed Comment: cooks cath placed without difficulty. Will start pitocin VAGINAL EXAM Dilatation: 2 Dilatation: 2 Effacement: 50 Effacement: 60 Station: -2 Station: -1 Contractions: rare Contractions: rare MEMBRANES Membranes: Intact Amniotic Fluid Color: Clear FETUS A FHR - Baseline: 135 Monitoring: External US Variability: Moderate 6-25bpm Accelerations: 15X15 Decelerations: None FHR Category: Category I Estimated Weight (gm): 3200 Presentation: Vertex SIGNATURE SIGNATURE: [id number];14,[id number];13,[id number] SIGNATURE: ,[id number];14,[id number] SIGNATURE: 14,[id number] SIGNATURE: 14,[id number] Assignment: Abigail Currie MD Signature: with User ID: Shayan : with User ID: Shayan
[2017-05-22] MEDS: RINGERS SOLUTION,LACTATED 1,000 ML IV PRN (21:02)
[2017-05-23] MEDS ORDERED: NALBUPHINE HCL INJ 10 MG/1 ML AMPULE INJ ONE (00:58)
[2017-05-23] MEDS ORDERED: NALBUPHINE HCL INJ 10 MG/1 ML AMPULE ONE (01:01)
[2017-05-23] MEDS ORDERED: OXYTOCIN/NORMAL SALINE 20 UNIT/1,000 ML RTUINJ IV PRN ×2 (03:24→09:33)
[2017-05-23] MEDS ORDERED: OXYTOCIN/NORMAL SALINE 0 UNIT/0 ML RTUINJ ONE (03:33)
[2017-05-23] MEDS: RINGERS SOLUTION,LACTATED 1,000 ML IV PRN (04:20)
[2017-05-23] MEDS ORDERED: EPHEDRINE SULFATE INJ 50 MG/1 ML AMPULE ONE (05:08)
[2017-05-23] MEDS ORDERED: FENTANYL/BUPIVACAINE/NS/PF 200 MCG/100 ML RTUINJ EPI ONE (05:08)
[2017-05-23] MEDS ORDERED: BUPIVACAINE HCL 0.25 % INJ/PF (2.5 MG/1 ML) 30 ML VIAL ONE (05:08)
[2017-05-23] MEDS ORDERED: MISOPROSTOL 0.2 MG TABLET ONE (07:47)
[2017-05-23] MEDS ORDERED: LIDOCAINE 1% INJ-PF (10 MG/ML) 30 ML SDV ONE (07:47)
[2017-05-23] MEDS ORDERED: OXYTOCIN/NORMAL SALINE 20 UNIT/1,000 ML RTUINJ ONE (07:47)
--- NOTE | 2017-05-23 08:24 | L&D Progress Notes ---
PROGRESS NOTES Datetime Report Generated by CPN: 05/23/2017 08:24 PROGRESS NOTE Impression: Normal Progression of Labor Procedures: Artificial ROM; Sterile Vag Exam Plan: Continue Present Management; Induction Informed Consent Obtained: Vaginal Delivery; Risks, Benefits and Alternatives Discussed Comment: cvx 5/75/-1. AROM clear fluid at 0740. Pt comfortable with epidural. Anticipate FETUS A FHR - Baseline: 125 Monitoring: External US Variability: Moderate 6-25bpm Accelerations: 15X15 Decelerations: None FHR Category: Category I FETUS C SIGNATURE: 13,[id number];14,[id number];10,[id number] Signature: with User ID: [email or web address]
[2017-05-23] MEDS ORDERED: PROMETHAZINE HCL 25 MG TABLET PO PRN (09:33)
[2017-05-23] MEDS ORDERED: DIPHENHYDRAMINE HCL 25 MG CAPSULE PO PRN (09:33)
[2017-05-23] MEDS ORDERED: ACETAMINOPHEN 650 MG SUPP.RECT PR PRN (09:33)
[2017-05-23] MEDS ORDERED: PROMETHAZINE HCL INJ 25 MG/1 ML VIAL IV PRN (09:33)
[2017-05-23] MEDS ORDERED: PROMETHAZINE HCL 25 MG SUPP.RECT PR PRN (09:33)
[2017-05-23] MEDS ORDERED: DIBUCAINE 1% OINTMENT 28 GM TP PRN (09:33)
[2017-05-23] MEDS ORDERED: ZOLPIDEM TARTRATE 5 MG TABLET PO PRN (09:33)
[2017-05-23] MEDS ORDERED: NA PHOS,M-B/NA PHOS,DI-BA (ADULT) 133 ML ENEMA PR PRN (09:33)
[2017-05-23] MEDS ORDERED: MEASLES,MUMPS&RUBELLA VACC/PF 0.5 ML VIAL SUBCUT PRN (09:33)
[2017-05-23] MEDS ORDERED: BENZOCAINE/MENTHOL AEROSOL SPRAY 56 ML TOP PRN (09:33)
[2017-05-23] MEDS ORDERED: ACETAMINOPHEN WITH CODEINE #3 TABLET PO PRN (09:33)
[2017-05-23] MEDS ORDERED: MAGNESIUM HYDROXIDE SUSP 30 ML UDCUP PO PRN (09:33)
[2017-05-23] MEDS ORDERED: PSEUDOEPHEDRINE HCL 30 MG TABLET PO PRN (09:33)
[2017-05-23] MEDS ORDERED: GLYCERIN/WITCH HAZEL LEAF 1 EACH MED..PAD TP PRN (09:33)
[2017-05-23] MEDS ORDERED: DIPH/PERTUSS(ACELL)/TETANUS VAC/PF 0.5 ML SYR (>=10YO) IM PRN (09:33)
[2017-05-23] MEDS ORDERED: IBUPROFEN 800 MG TABLET ONE (11:19)
--- NOTE | 2017-05-23 11:39 | Warning Signs in Babies ---
VOD Warning Signs Datetime Report Generated by [facility]: 05/23/2017 11:39 VOD#608 -Warning Signs in Babies: Needs to be viewed. (04/01/2017 19:23:Shira Pat RN)
--- NOTE | 2017-05-23 14:46 | Delivery Summary ---
Del Sum A-C Datetime Report Generated by CPN: 05/23/2017 14:45 DELIVERY PERSONNEL DELIVERY PERSONNEL: [id number] Delivery Doctor:: Belkys Maldonado MD Labor and Delivery Nurse:: Shira Pat RNedger operator Nurse:: Jaquelin Crmaer RN Product Development Coordinator/PASSENGER RELATIONS REPRESENTATIVE: Norbert Rob, PRESS PULLER MATERNAL INFORMATION Delivery Anesthesia: Epidural Medications After Delivery: Pitocin Bolus-Please Comment Meds After Delivery Comment: pitocin bolusing per order Estimated Blood Loss (ml): 100 Maternal Complications: None LABOR SUMMARY EDC: 06/11/2017 00:00 No. Babies in Womb: 1 Attempted: No Labor Anesthesia: Epidural LABOR INFORMATION Reason for Induction: Oligohydramnios Cervical Ripening Agents: Santacruz Balloon Oxytocin: Induction Group B Beta Strep: negative Antibiotics # of Doses: 0 Steroids Given: None Reason Steroids Not Administered: Not Applicable MEMBRANES Membranes Rupture Method: Artificial Rupture of Membranes: 05/23/2017 07:37 Length of Rupture (hr): 1.73 Amniotic Fluid Color: Clear Amniotic Fluid Amount: Small Amniotic Fluid Odor: Normal STAGES OF LABOR Stage 3 hr: 0 Stage 3 min: 3 VAGINAL DELIVERY Episiotomy: None Laceration #1: None Laceration Extension #1: N/A Laceration Repair: Not Applicable Sponge Count Correct: N/A; Vaginal Sweep Performed Sharps Count Correct: N/A CSECTION DELIVERY Primary Indication: N/A Secondary Indication: N/A CSection Incidence: N/A Labor: N/A Elective: N/A CSection Incision: N/A BABY A INFORMATION Infant Delivery Date/Time: 05/23/2017 09:21 Method of Delivery: Vaginal Born in Route : No : N/A Forceps: N/A Vacuum Extraction: N/A Shoulder Dystocia : No PRESENTATION/POSITION BABY A Presentation: Cephalic Cephalic Presentation: Vertex Vertex Position: OA Breech Presentation: N/A PLACENTA INFORMATION BABY A Placenta Delivery Time : 05/23/2017 09:24 Placenta Method of Delivery: Spontaneous Placenta Status: Delivered SCORES BABY A Heart Rate 1 min: >100 bpm Resp Effort 1 min: Good Cry Reflex Irritability 1 min: Cough or Sneeze or Pulls Away Muscle Tone 1 min: Active Motion Color 1 min: Body [place], Extremities Blue Resuscitation Effort 1 min: Tactile Stimulation SCORE 1 MIN: 9 Heart Rate 5 min: >100 bpm Resp Effort 5 min: Good Cry Reflex Irritability 5 min: Cough or Sneeze or Pulls Away Muscle Tone 5 min: Active Motion Color 5 min: Body [place], Extremities Blue Resuscitation Effort 5 min: Tactile Stimulation SCORE 5 MIN: 9 INFANT INFORMATION BABY A Gestational Age at Delivery: 37.2 Gestational Status: Early Term- 37- 38.6 Weeks Outcome : Liveborn Condition : Stable Infant Sex: Male IDENTIFICATION BABY A Verification Date/Time: 05/23/2017 10:29 ID Band Number: [id number] Mother's Name Verified: Yes Infant RN Verifying Infant: Gris Aleman WEIGHT/LENGTH BABY A Infant Birthweight (gm): 2735 Weight (lb): 6 Weight (oz): 0 Infant Length (in): 19.00 Length (cm): 48.26 CORD INFORMATION BABY A No. Cord Vessels: 3 Nuchal Cord : Around Neck x1, Loose Cord Blood Taken: Yes-For Storage (Mom's Blood type +) Suction: Mouth; Nose ASSESSMENT BABY A Infant Complications: Oligohydramnios Physical Findings at Delivery: Within Normal Limits Respirations: Appears Normal Skin to Skin: Yes Care By: Jennifer Cramer RN Transferred To: Remains with Mother BABY B INFORMATION : N/A SIGNATURES Signature: with User ID: Adri
[2017-05-23] MEDS: ACETAMINOPHEN WITH CODEINE #3 TABLET PO PRN ×2 (15:42→20:45)
[2017-05-23] MEDS: PRENATAL VITAMIN W DHA CAPSULE PO SCH (16:06)
[2017-05-23] MEDS: DOCUSATE SODIUM 100 MG CAPSULE PO SCH ×2 (16:06→17:43)
[2017-05-23] MEDS: SENNOSIDES/DOCUSATE 8.6-50 MG 1 EACH TABLET PO SCH (16:06)
[2017-05-23] MEDS: IBUPROFEN 800 MG TABLET PO SCH ×2 (16:06→22:57)
[2017-05-23] MEDS: FERROUS SULFATE 325 MG TABLET PO SCH ×2 (16:06→17:42)
[2017-05-23] MEDS: FAMOTIDINE 20 MG TABLET PO SCH ×2 (16:06→22:58)
[2017-05-24] MEDS: ACETAMINOPHEN WITH CODEINE #3 TABLET PO PRN ×3 (04:01→17:05)
[2017-05-24 07:23] LABS: HEMATOCRIT 28.2 % (36.0-47.0); HEMOGLOBIN 9.5 g/dL (12.0-15.5); MEAN CORPUSCULAR HEMOGLOBIN 29.5 pg (27.0-33.4); MEAN CORPUSCULAR HGB CONC 33.8 g/dL (32.0-36.0); MEAN CORPUSCULAR VOLUME 87 fl (80-97); PLATELET COUNT 146 10^3/uL (150-450); RED BLOOD COUNT 3.23 10^6/uL (3.72-5.28); RED CELL DISTRIBUTION WIDTH 12.6 % (11.5-14.0)
[2017-05-24] MEDS: IBUPROFEN 800 MG TABLET PO SCH ×3 (07:28→22:19)
[2017-05-24] MEDS: PRENATAL VITAMIN W DHA CAPSULE PO SCH (10:02)
[2017-05-24] MEDS: FAMOTIDINE 20 MG TABLET PO SCH ×2 (10:02→22:21)
[2017-05-24] MEDS: FERROUS SULFATE 325 MG TABLET PO SCH ×2 (10:03→17:06)
[2017-05-24] MEDS: DOCUSATE SODIUM 100 MG CAPSULE PO SCH ×2 (10:03→17:06)
[2017-05-24] MEDS: SENNOSIDES/DOCUSATE 8.6-50 MG 1 EACH TABLET PO SCH (10:03)
--- NOTE | 2017-05-24 10:04 | PDOC PROGRESS REPORT ---
Subjective-OB Progress Note for:: 05/24/17 Subjective: Doing well, c/o of cramping on left side, bottle feeding, wearing bra, voiding Physical Exam (OB) Vital Signs: Temp Pulse Resp BP Pulse Ox 98.0 F 50 L 15 106/56 L 97 05/24/17 08:00 05/24/17 08:00 05/24/17 08:00 05/24/17 08:00 05/24/17 08:00 Intake & Output 05/23/17 05/24/17 05/25/17 06:59 06:59 06:59 Weight 62.1 kg - Lochia Lochia Amount: Scant < 10 ml Lochia Color: Rubra/Red - Abdomen Description: Soft, Flat Hernia Present: No Fundal Description: Firm, Midline Fundal Height: u/u - u/2 Objective-Diagnostic Laboratory: 05/24/17 07:09 05/24/17 07:09 WBC 10.0 RBC 3.23 L Hgb 9.5 L Hct 28.2 L MCV 87 MCH 29.5 MCHC 33.8 RDW 12.6 Plt Count 146 L Assessment and Plan(PN) - Assessment and Plan (1) Vaginal delivery Is this a current diagnosis for this admission?: Yes (2) Oligohydramnios Qualifiers: Fetus number: single or unspecified fetus Is this a current diagnosis for this admission?: Yes (3) Depression Qualifiers: Depression Type: unspecified Qualified Code(s): F32.9 - Major depressive disorder, single episode, unspecified Is this a current diagnosis for this admission?: Yes (4) Chronic pain Qualifiers: Chronic pain type: other chronic pain Qualified Code(s): G89.29 - Other chronic pain Is this a current diagnosis for this admission?: Yes (5) Intrauterine Is this a current diagnosis for this admission?: Yes - Time Spent with Patient Time with patient: Less than 15 minutes Medications reviewed and adjusted accordingly: Yes - Disposition Anticipated Discharge: Home Within: within 24 hours
[2017-05-25] MEDS: ACETAMINOPHEN WITH CODEINE #3 TABLET PO PRN ×2 (02:47→08:39)
[2017-05-25] MEDS: IBUPROFEN 800 MG TABLET PO SCH (05:10)
[2017-05-25 08:36] VITALS: BP 112/59
[2017-05-25] MEDS: FERROUS SULFATE 325 MG TABLET PO SCH (10:19)
[2017-05-25] MEDS: PRENATAL VITAMIN W DHA CAPSULE PO SCH (10:19)
[2017-05-25] MEDS: FAMOTIDINE 20 MG TABLET PO SCH (10:20)
[2017-05-25] MEDS: DOCUSATE SODIUM 100 MG CAPSULE PO SCH (10:20)
[2017-05-25] MEDS: SENNOSIDES/DOCUSATE 8.6-50 MG 1 EACH TABLET PO SCH (10:20)
--- NOTE | 2017-05-25 10:33 | PDOC PROGRESS REPORT ---
Subjective-OB Progress Note for:: 05/25/17 Subjective: Feeling better today, holding baby, bottle feeding, voiding, mild menstrual cramping, mod lochia Physical Exam (OB) Vital Signs: Temp Pulse Resp BP Pulse Ox 98.2 F 57 L 14 112/59 L 98 05/25/17 08:25 05/25/17 08:25 05/25/17 08:25 05/25/17 08:25 05/25/17 08:25 Intake & Output 05/24/17 05/25/17 05/26/17 06:59 06:59 06:59 Intake Total 350 Balance 350 - Lochia Lochia Amount: Small 10-25 ml Lochia Color: Rubra/Red - Abdomen Description: Soft, Round Hernia Present: No Fundal Description: Firm, Midline Fundal Height: u/u - u/2 Objective-Diagnostic Laboratory: 05/24/17 07:09 Assessment and Plan(PN) - Assessment and Plan (1) Vaginal delivery Is this a current diagnosis for this admission?: Yes (2) Oligohydramnios Qualifiers: Fetus number: single or unspecified fetus Is this a current diagnosis for this admission?: Yes (3) Depression Qualifiers: Depression Type: unspecified Qualified Code(s): F32.9 - Major depressive disorder, single episode, unspecified Is this a current diagnosis for this admission?: Yes (4) Chronic pain Qualifiers: Chronic pain type: other chronic pain Qualified Code(s): G89.29 - Other chronic pain Is this a current diagnosis for this admission?: Yes (5) Intrauterine Is this a current diagnosis for this admission?: Yes - Time Spent with Patient Medications reviewed and adjusted accordingly: Yes - Disposition Anticipated Discharge: Home Within: Other - home today
--- NOTE | 2017-05-25 10:38 | PDOC DISCHARGE SUMMARY ---
Final Diagnosis Discharge Date: 05/25/17 - Final Diagnosis (1) Vaginal delivery Is this a current diagnosis for this admission?: Yes (2) Oligohydramnios Is this a current diagnosis for this admission?: Yes (3) Depression Is this a current diagnosis for this admission?: Yes (4) Chronic pain Is this a current diagnosis for this admission?: Yes (5) Intrauterine Is this a current diagnosis for this admission?: Yes Discharge Data - Discharge Medication Home Medications: No122/Iron/Folic Acid [ Multi Tablet] 1 each PO DAILY 10/08/16 Gestational Age: 37.2 Reason(s) for Admission: Induction of Labor Admission Note: oligohydramnios Procedures: NST, Ultrasound Intrapartum Procedure(s): Spontaneous Vaginal Delivery - [place] Data Baby 1 Male at 1 minute: 9 at 5 minutes: 9 Weight: 2.722 kg Home with Mother: Yes Complications: No - Diagnosis Test Laboratory: Temp Pulse Resp BP Pulse Ox 98.2 F 57 L 14 112/59 L 98 05/25/17 08:25 05/25/17 08:25 05/25/17 08:25 05/25/17 08:25 05/25/17 08:25 05/22/17 05/22/17 05/24/17 11:45 18:05 07:09 RBC 3.76 3.23 L Hgb 11.0 L D 9.5 L Hct 32.8 L 28.2 L Urine Opiates Screen NEGATIVE - Discharge information/Instructions Discharge Activity: Activity As Tolerated, No Lifting/Push/Pulling, Pelvic Rest Discharge Diet: As Tolerated, Regular Disposition: HOME, SELF-CARE Follow up with: [facility] in: 4, Weeks
== END 2017-05-25 13:35 | disposition home or self-care (01) | DRG 775 ==
LOC: LC 11:20 → LR 17:56 → 2N 05-23 11:43
PROVIDERS: ADMIT Student in an Organized Health Care Education/Training Program; ATTEND Student in an Organized Health Care Education/Training Program
PROC: 4A1HXCZ Monitoring of Products of Conception, Cardiac Rate, External Approach (ICD-10-PCS; 2017-05-22)
PROC: 10E0XZZ Delivery of Products of Conception, External Approach (ICD-10-PCS; principal; 2017-05-23)
PROC: 3E033VJ Introduction of Other Hormone into Peripheral Vein, Percutaneous Approach (ICD-10-PCS; 2017-05-23)
PROC: 10907ZC Drainage of Amniotic Fluid, Therapeutic from Products of Conception, Via Natural or Artificial Opening (ICD-10-PCS; 2017-05-23)
DX: O41.03X0 Oligohydramnios, third trimester, not applicable or unspecified (principal); O99.344 Other mental disorders complicating childbirth; F32.9 Major depressive disorder, single episode, unspecified; O75.9 Complication of labor and delivery, unspecified; G89.29 Other chronic pain; O69.81X0 Labor and delivery complicated by cord around neck, without compression, not applicable or unspecified; Z87.891 Personal history of nicotine dependence; Z3A.37 37 weeks gestation of pregnancy; Z37.0 Single live birth
CPT/HCPCS: 36415; 76815; 80307; 81001; 84112; 85025; 85027; 86592; 86850; 86900; 86901; 94760; C1726; J2300; J2590; J3490

== ENCOUNTER 2017-07-09 07:00 | Day surgery (SDC) | payer BC, MEDICAID ==
[2017-07-03 10:50] LABS: APPEARANCE,URINE CLEAR; BILIRUBIN,URINE NEGATIVE (NEGATIVE); COLOR,URINE STRAW; GLUCOSE, URINE NEGATIVE (NEGATIVE); KETONES,URINE NEGATIVE (NEGATIVE); LEUKOCYTE ESTERASE,URINE NEGATIVE (NEGATIVE); NITRITE,URINE NEGATIVE (NEGATIVE); PROTEIN,URINE NEGATIVE (NEGATIVE); URINE SPECIFIC GRAVITY 1.003; UROBILINOGEN,URINE NEGATIVE mg/dL (<2.0)
[2017-07-03 11:00] LABS: HEMATOCRIT 41.5 % (36.0-47.0); HEMOGLOBIN 13.5 g/dL (12.0-15.5); MEAN CORPUSCULAR HEMOGLOBIN 28.1 pg (27.0-33.4); MEAN CORPUSCULAR HGB CONC 32.5 g/dL (32.0-36.0); MEAN CORPUSCULAR VOLUME 86 fl (80-97); PLATELET COUNT 200 10^3/uL (150-450); RED BLOOD COUNT 4.81 10^6/uL (3.72-5.28); RED CELL DISTRIBUTION WIDTH 14.2 % (11.5-14.0); WHITE BLOOD COUNT 7.4 10^3/uL (4.0-10.5)
[~2017-07-09 07:00] MED LIST: LACTATED RINGERS 1000 ML IV PRN; LIDOCAINE 0.5% INJ-PF (5 MG/ML) 50 ML SDV SUBCUT PRN
[2017-07-09] MEDS ORDERED: ACETAMINOPHEN 100 ML IV ONE (08:30)
[2017-07-09] MEDS ORDERED: MIDAZOLAM 2 MG/2 ML INJ ONE (08:30)
[2017-07-09] MEDS ORDERED: PROPOFOL INJ 200 MG/20 ML VIAL IV ONE (08:30)
[2017-07-09] MEDS ORDERED: HYDROMORPHONE HCL INJ/PF 2 MG/ML AMPULE ONE (08:31)
[2017-07-09] MEDS ORDERED: PROMETHAZINE HCL INJ 25 MG/1 ML VIAL IV PRN ×2 (09:00)
[2017-07-09] MEDS ORDERED: ONDANSETRON HCL INJ/PF 4 MG/2 ML SDV IV PRN (09:00)
[2017-07-09] MEDS ORDERED: MEPERIDINE HCL/PF INJ 25 MG/1 ML DISP.SYRIN IV PRN (09:00)
[2017-07-09] MEDS ORDERED: DIPHENHYDRAMINE HCL 50 MG/ML VIAL IV PRN (09:00)
[2017-07-09] MEDS ORDERED: OXYCODONE-ACETAMINOPHEN 5-325 MG TABLET PO PRN ×4 (09:00→09:46)
[2017-07-09] MEDS ORDERED: FENTANYL CITRATE INJ/PF 100 MCG/2 ML AMPUL IV PRN ×3 (09:00)
[2017-07-09] MEDS ORDERED: ONDANSETRON HCL INJ/PF 4 MG/2 ML SDV ONE ×2 (09:38→13:37)
[2017-07-09] MEDS ORDERED: IBUPROFEN 800 MG TABLET PO PRN (09:45)
[2017-07-09] MEDS ORDERED: MORPHINE SULFATE 10 MG/ML INJ IM PRN (09:45)
--- NOTE | 2017-07-09 09:49 | OPERATIVE REPORT E ---
Operative Report NAME: PADDY CONTEH : 1985 AGE: 31Y DATE OF SURGERY: 07/09/2017 ROOM: PREOPERATIVE DIAGNOSIS: Undesired fertility. POSTOPERATIVE DIAGNOSIS: Undesired fertility. SURGEON: KAITLYN BLACKWELL M.D. ANESTHESIA: Dr. Ruff with general. FINDINGS: Normal uterus, tubes, and ovaries. COMPLICATIONS: None. ESTIMATED BLOOD LOSS: 20 mL. SPECIMENS REMOVED: Bilateral fallopian tubes. PROCEDURE: Laparoscopic bilateral salpingectomy. PROCEDURE IN DETAIL: the patient was taken to the operating room and prepared and draped in a normal sterile fashion in the dorsal lithotomy position. Under sterile condition, an in-and-out catheter was performed of approximately 20 mL of clear urine. Sterile speculum was placed in the vagina and the anterior lip of the cervix was grasped with a single-toothed tenaculum and a Hulka clamp was placed through the cervix for uterine manipulation. A single-toothed tenaculum was removed. Speculum was removed and attention was turned to the upper portion of the case. The gloves were changed. Skin incision was made at the umbilicus through which a Veress needle was introduced and the peritoneal cavity placement was confirmed with free flow of sterile water through the needle. The abdomen was then insufflated with approximately 2 L of CO2 gas. The needle was removed, and through this incision, a 5 mm trocar was placed to accommodate the camera. The camera was introduced and the peritoneal cavity placement was confirmed. Under direct visualization, two 5 mm ports were placed in the right and left lower quadrants. The patient was placed in steep Trendelenburg. The bowel was swept away. Beginning with the right fallopian, this was grasped with an atraumatic grasper and held in place by the business services assistant. The LigaSure was then introduced, and following the mesosalpinx starting at the uterine fundus, the fallopian tube was ligated using a LigaSure device until the fallopian tube was freed. The fallopian tube was then placed into the anterior cul-de-sac for removal with a trocar. The procedure was repeated on the patient's left fallopian tube without difficulty and this fallopian tube was removed through the trocar. The first fallopian tube was taken from the anterior cul-de-sac and removed with the trocar in whole without difficulty. The abdomen was then surveyed and found to have no further abnormal findings and the abdomen was deflated of CO2 gas through the umbilical port. The umbilical port was then removed. The skin was closed at all 3 sites using 4-0 Vicryl. The patient tolerated the procedure well. Sponge, lap, and needle counts were correct x2, and the patient was taken to recovery in stable condition. DICTATING PHYSICIAN: KAITLYN BLACKWELL M.D. [id number] PHY#: [id number] ID: [id number] JOB#: [id number] ACCT: [id number] cc:KAITLYN BLACKWELL M.D. > MTDD
[2017-07-09] MEDS ORDERED: FENTANYL CITRATE INJ/PF 100 MCG/2 ML AMPUL ONE (09:59)
[2017-07-09 11:40] VITALS: BP 108/70
[2017-07-09] MEDS ORDERED: LIDOCAINE 2% INJ-PF (20 MG/ML) 2 ML AMPUL ONE (13:37)
[2017-07-09] MEDS ORDERED: GLYCOPYRROLATE INJ 0.4 MG/2 ML VIAL ONE (13:37)
[2017-07-09] MEDS ORDERED: DEXAMETHASONE SOD PHOSPHATE INJ 4 MG/1 ML VIAL ONE (13:37)
[2017-07-09] MEDS ORDERED: METOCLOPRAMIDE HCL INJ/PF 10 MG/2 ML SDV ONE (13:37)
[2017-07-09] MEDS ORDERED: SUCCINYLCHOLINE CHLORIDE INJ 200 MG/10 ML VIAL ONE (13:37)
[2017-07-09] MEDS ORDERED: NEOSTIGMINE METHYLSULFATE 10 MG/10 ML VIAL ONE (13:37)
[2017-07-09] MEDS ORDERED: ROCURONIUM BROMIDE INJ 50 MG/5 ML VIAL IV ONE (13:37)
[2017-07-09] MEDS ORDERED: KETOROLAC TROMETHAMINE 60 MG/2 ML SDV ONE (13:37)
== END 2017-07-09 11:45 | disposition home or self-care (01) ==
LOC: OROUT 07:00
PROVIDERS: ATTEND Obstetrics & Gynecology
DX: Z30.2 Encounter for sterilization (principal); N83.8 Other noninflammatory disorders of ovary, fallopian tube and broad ligament; F17.210 Nicotine dependence, cigarettes, uncomplicated
CPT/HCPCS: 36415; 85027; 81005; 81025; 88302 ×2; 58661; J2250; J3490 ×2; J1100; J1885; J3010; J2765; J1170; J0330; J2405; J2704; J0131; 851

== ENCOUNTER 2018-10-01 09:50 | Emergency (ER) | payer BC, MEDICAID ==
--- NOTE | 2018-10-01 10:52 | ER Document Report ---
ED Medical Screen (RME) - General Chief Complaint: Numbness of Arm Stated Complaint: ARM NUMBNESS Time Seen by Provider: 10/01/18 10:42 Primary Care Provider: DHRUV EDWARDS MD [Primary Care Provider] - Follow up as needed Information source: Patient Notes: pt presents c/o left side chest lump for several months. Patient states that she has had pain to the left side of her chest that radiates to the left arm for the past 3 days off and on. Patient complains of numbness intermittently to the left upper extremity for the past 3 days as well. Patient reports about 2-3 episodes of numbness to the left arm each day. Patient denies any shortness of breath nausea or vomiting. Patient denies any difficulty breathing. I have greeted and performed a rapid initial assessment of this patient. A comprehensive ED assessment and evaluation of the patient, analysis of test results and completion of the medical decision making process will be conducted by additional ED providers. TRAVEL OUTSIDE OF THE [place] IN LAST 30 DAYS: No - Related Data Allergies/Adverse Reactions: No Known Allergies Allergy (Verified 10/01/18 09:52) Past Medical History - Social History Chew tobacco use (# tins/day): No Frequency of alcohol use: None Drug Abuse: None - Past Medical History Cardiac Medical History: Denies: Hx Coronary Artery Disease, Hx Heart Attack, Hx Hypertension Pulmonary Medical History: Denies: Hx Asthma, Hx Bronchitis, Hx COPD, Hx Pneumonia Neurological Medical History: Denies: Hx Cerebrovascular Accident, Hx Seizures Renal/ Medical History: Reports: Hx Ectopic . Denies: Hx Peritoneal Dialysis Musculoskeltal Medical History: Denies Hx Arthritis Psychiatric Medical History: Reports: Hx Anxiety, Hx Depression Past Surgical History: Reports: Hx Gynecologic Surgery, Other - Gynecologic pr ocedure for ectopic - Immunizations Hx Diphtheria, Pertussis, Tetanus Vaccination: Yes History of Influenza Vaccine for 11/2016 - 04/2017 Season: No Physical Exam - Vital signs Vitals: Temp Pulse Resp BP Pulse Ox 97.8 F 61 14 113/69 100 10/01/18 10:08 10/01/18 10:08 10/01/18 10:08 10/01/18 10:08 10/01/18 10:08 - Respiratory Respiratory status: No respiratory distress Chest status: Tender Breath sounds: Normal Chest palpation: Tender - Palpable lump to left anterior chest wall, no overlying erythema Course - Vital Signs Vital signs: Temp Pulse Resp BP Pulse Ox 97.8 F 61 14 113/69 100 10/01/18 10:08 10/01/18 10:08 10/01/18 10:08 10/01/18 10:08 10/01/18 10:08 Doctor's Discharge - Discharge Referrals: DHRUV EDWARDS MD [Primary Care Provider] - Follow up as needed
[2018-10-01 11:19] LABS: ABSOLUTE BASOPHILS # (AUTO) 0.1 10^3/uL (0.0-0.2); ABSOLUTE EOSINOPHILS # (AUTO) 0.1 10^3/uL (0.0-0.6); ABSOLUTE LYMPHOCYTES (AUTO) 1.7 10^3/uL (0.5-4.7); ABSOLUTE MONOCYTES (AUTO) 0.7 10^3/uL (0.1-1.4); ABSOLUTE NEUT (AUTO) 4.1 10^3/uL (1.7-8.2); BASOPHILS % (AUTO) 1.1 % (0-2); EOSINOPHILS % (AUTO) 1.7 % (0-6); HEMATOCRIT 39.8 % (36.0-47.0); HEMOGLOBIN 13.3 g/dL (12.0-15.5); LYMPHOCYTES % (AUTO) 25.9 % (13-45); MEAN CORPUSCULAR HGB CONC 33.5 g/dL (32.0-36.0); MEAN CORPUSCULAR VOLUME 90 fl (80-97); MONOCYTES % (AUTO) 10.1 % (3-13); PLATELET COUNT 209 10^3/uL (150-450); RED BLOOD COUNT 4.43 10^6/uL (3.72-5.28); RED CELL DISTRIBUTION WIDTH 13.3 % (11.5-14.0); SEGMENTED NEUTROPHILS % (AUTO) 61.2 % (42-78); TOTAL CELLS COUNTED % (AUTO) 100 %; WHITE BLOOD COUNT 6.7 10^3/uL (4.0-10.5)
--- NOTE | 2018-10-01 11:33 | RADIOLOGY REPORT (SQ) ---
EXAM DESCRIPTION: CHEST 2 VIEWS COMPLETED DATE/TIME: 10/01/2018 11:21 am REASON FOR STUDY: L chest pain COMPARISON: 01/09/2017 EXAM PARAMETERS: NUMBER OF VIEWS: two views TECHNIQUE: Digital Frontal and Lateral radiographic views of the chest acquired. RADIATION DOSE: NA LIMITATIONS: none FINDINGS: LUNGS AND PLEURA: No opacities, masses or pneumothorax. No pleural effusion. MEDIASTINUM AND HILAR STRUCTURES: No masses or contour abnormalities. HEART AND VASCULAR STRUCTURES: Heart normal size. No evidence for failure. BONES: No acute findings. HARDWARE: None in the chest. OTHER: No other significant finding. IMPRESSION: No acute abnormality of the lungs. No focal airspace opacity. TECHNICAL DOCUMENTATION: JOB ID: [id number] [employer]- All Rights Reserved Reading location - IP/workstation name: [email or web address]
[2018-10-01 11:38] LABS: ALBUMIN 3.9 g/dL (3.5-5.0); ALKALINE PHOSPHATASE 45 U/L (38-126); ANION GAP 8 (5-19); ASPARTATE AMINO TRANSFERASE 18 U/L (14-36); BILIRUBIN,DIRECT 0.1 mg/dL (0.0-0.4); BILIRUBIN,TOTAL 0.5 mg/dL (0.2-1.3); BLOOD UREA NITROGEN 2 mg/dL (7-20); CALCIUM 8.8 mg/dL (8.4-10.2); CARBON DIOXIDE 27 mmol/L (22-30); CHLORIDE 106 mmol/L (98-107); POTASSIUM 3.4 mmol/L (3.6-5.0); TOTAL PROTEIN 5.8 g/dL (6.3-8.2)
[2018-10-01 11:41] LABS: GLUCOSE 42 mg/dL (75-110)
--- NOTE | 2018-10-01 11:48 | ER Document Report ---
ED General - General Chief Complaint: Numbness of Arm Stated Complaint: ARM NUMBNESS Time Seen by Provider: 10/01/18 10:42 Primary Care Provider: DHRUV EDWARDS MD [Primary Care Provider] - Follow up as needed TRAVEL OUTSIDE OF THE [place] IN LAST 30 DAYS: No - HPI Notes: Patient presents with 3 days of intermittent numbness tingling of entire left arm and intermittent weakness. She denies any history of heart attack stroke or any other medical history. Her mother did have a stroke but she is in her 60s. No recent cough congestion or fevers. She states that her symptoms are intermittent and last anywhere from minutes to hours. Upon further discussion, she states that she feels like she has a lump in her upper left chest wall that is painful to touch and when pressed her symptoms are replicated. - Related Data Allergies/Adverse Reactions: No Known Allergies Allergy (Verified 10/01/18 09:52) Past Medical History - General Information source: Patient - Social History Smoking Status: Current Every Day Smoker Chew tobacco use (# tins/day): No Frequency of alcohol use: None Drug Abuse: None Family History: Reviewed & Not Pertinent, DM Patient has suicidal ideation: No Patient has homicidal ideation: No - Past Medical History Cardiac Medical History: Denies: Hx Coronary Artery Disease, Hx Heart Attack, Hx Hypertension Pulmonary Medical History: Denies: Hx Asthma, Hx Bronchitis, Hx COPD, Hx Pneumonia Neurological Medical History: Denies: Hx Cerebrovascular Accident, Hx Seizures Renal/ Medical History: Reports: Hx Ectopic . Denies: Hx Peritoneal Dialysis Musculoskeletal Medical History: Denies Hx Arthritis Psychiatric Medical History: Reports: Hx Anxiety, Hx Depression Past Surgical History: Reports: Hx Gynecologic Surgery, Other - Gynecologic proc edure for ectopic - Immunizations Hx Diphtheria, Pertussis, Tetanus Vaccination: Yes Review of Systems - Review of Systems Constitutional: No symptoms reported EENT: No symptoms reported Cardiovascular: No symptoms reported Respiratory: No symptoms reported Gastrointestinal: No symptoms reported Genitourinary: No symptoms reported Female Genitourinary: No symptoms reported Musculoskeletal: No symptoms reported, See HPI Skin: No symptoms reported Hematologic/Lymphatic: No symptoms reported Neurological/Psychological: No symptoms reported Physical Exam - Vital signs Vitals: Temp Pulse Resp BP Pulse Ox 97.8 F 61 14 113/69 100 10/01/18 10:08 10/01/18 10:08 10/01/18 10:08 10/01/18 10:08 10/01/18 10:08 - General General appearance: Appears well, Alert - HEENT Head: Normocephalic Eyes: Normal Conjunctiva: Normal - Respiratory Respiratory status: No respiratory distress Chest status: Other - Mild tenderness palpation of lateral upper chest wall with no evidence of erythema or induration. Appears to be her rib versus any type of mass or lump is there is symmetry left versus right - Cardiovascular Rhythm: Regular Heart sounds: Normal auscultation Murmur: No - Abdominal Inspection: Normal Distension: No distension Bowel sounds: Normal - Neurological Notes: Patient appears to have weakened glost tile shader strength on left versus right full range of motion with gross sensory appears intact. Course - Re-evaluation Re-evalutation: 10/01/18 11:57 Patient symptoms more consistent with radiculopathy at this time her tendons are reproduced with palpation of her chest wall. Will perform CT of chest this time to assure no acute abnormalities. Symptoms not consistent with CVA as symptoms are replicated with pressing on her chest wall. 10/01/18 13:25 CT shows no concerning findings. The neuropathy is reproducible with palpation of upper left chest wall. Discussed 5 days of steroids and follow-up with primary care physician for reevaluation. - Vital Signs Vital signs: Temp Pulse Resp BP Pulse Ox 97.8 F 61 14 113/69 100 10/01/18 10:08 10/01/18 10:08 10/01/18 10:08 10/01/18 10:08 10/01/18 10:08 - Laboratory Result Diagrams: 10/01/18 11:03 10/01/18 11:03 Laboratory results interpreted by me: 10/01/18 11:03 Potassium 3.4 L BUN 2 L Glucose 42 L Total Protein 5.8 L - EKG Interpretation by Nd EKG shows normal: Sinus rhythm Rate: Normal - No concerning ST depressions or elevations Rhythm: NSR Discharge - Discharge Clinical Impression: Radiculopathy affecting upper extremity Condition: Good Disposition: HOME, SELF-CARE Prescriptions: Prednisone 40 mg PO DAILY 5 Days #10 tablet Referrals: DHRUV EDWARDS MD [Primary Care Provider] - Follow up in 1 week (For reevaluation)
[2018-10-01 11:49] LABS: APPEARANCE,URINE CLEAR; BILIRUBIN,URINE NEGATIVE (NEGATIVE); COLOR,URINE COLORLESS; GLUCOSE, URINE NEGATIVE (NEGATIVE); KETONES,URINE NEGATIVE (NEGATIVE); LEUKOCYTE ESTERASE,URINE NEGATIVE (NEGATIVE); NITRITE,URINE NEGATIVE (NEGATIVE); PROTEIN,URINE NEGATIVE (NEGATIVE); URINE SPECIFIC GRAVITY 1.003; UROBILINOGEN,URINE NEGATIVE mg/dL (<2.0)
--- NOTE | 2018-10-01 12:36 | RADIOLOGY REPORT (SQ) ---
EXAM DESCRIPTION: CT CHEST WITHOUT COMPLETED DATE/TIME: 10/01/2018 12:14 pm REASON FOR STUDY: pain in L side of chest, concern for lump COMPARISON: None. TECHNIQUE: CT scan performed of the chest without intravenous contrast. Images reviewed with lung, soft tissue and bone windows. Reconstructed coronal and sagittal MPR images reviewed. All images st ored on PACS. A ion was placed on the skin of the anterior left chest at the level of a palpable lump. All CT scanners at this facility use dose modulation, iterative reconstruction, and/or weight based d osing when appropriate to reduce radiation dose to as low as reasonably achievable (ALARA). [facility]: Dose Right [facility]: CareDose [facility]: Dose Right [facility]: Teradose 4D [facility]: Fundrise RADIATION DOSE: CT Rad equipment meets quality standard of care and radiation dose reduction techniq ues were employed. CTDIvol: 4.8 mGy. DLP: 189 mGy-cm. mGy. LIMITATIONS: No technical limitations. FINDINGS: LUNGS AND PLEURA: No masses, infiltrates, or pneumothorax. No pleural effusions or pleura l calcifications. HILAR AND MEDIASTINAL STRUCTURES: No identified masses or abnormal nodes. No obvious aneurysm. HEART AND VASCULAR STRUCTURES: No aneurysm. No pericardial effusion. UPPER ABDOMEN: No significant findings. Limited exam. THYROID AND OTHER SOFT TISSUES: No masses. No adenopathy. BONES: No significant finding. HARDWARE: None in the chest. OTHER: No other significant findings. IMPRESSION: NO SIGNIFICANT FINDING ON NON-CONTRASTED CHEST CT. NO MASS OR ABNORMAL SOFT TISSUE FIND INGS IN THE ANTERIOR LEFT CHEST AT THE LEVEL OF A PALPABLE LUMP. THE PATIENT HAS A THIN BODY HABITUS AND THE PALPABLE FINDING MAY BE THE UNDERLYING RIB. TECHNICAL DOCUMENTATION: JOB ID: [id number] Quality ID # [id number]: Final reports with documentation of one or more dose reduction techniques (e.g., Au tomated exposure control, adjustment of the mA and/or kV according to patient size, use of iterative reconstruction technique) 2010 [employer]- All Rights Reserved Reading location - IP/workstation name: [email or web address]
[2018-10-01 13:53] VITALS: BP 101/64
--- NOTE | 2018-10-02 10:27 | EKG REPORT ---
SEVERITY:- NORMAL ECG - SINUS RHYTHM : Confirmed by: Scar Rubalcava 02-Oct-2018 10:26:26
== END 2018-10-01 13:41 | disposition home or self-care (01) ==
LOC: ER 09:50
DX: M54.10 Radiculopathy, site unspecified (principal); R07.89 Other chest pain; F17.200 Nicotine dependence, unspecified, uncomplicated
CPT/HCPCS: 36415; 71046; 71250; 80053; 81001; 82962; 84484; 85025; 93005; 93010; 99284